=== PATIENT | female | born 1940 | race Caucasian/White ===

== ENCOUNTER 2024-11-30 16:00 | Inpatient (IN) | payer MEDICARE, OTHER, SELFPAY ==
[2024-11-30] VITALS (10 sets, daily range): BP systolic 121–152; BP diastolic 48–82; BMI 26.8
--- NOTE | 2024-11-30 12:07 | ED.GENMED ---
History of Present Illness
General
Chief Complaint: Breathing Problem
Time Seen by Provider: 11/30/24 11:58
Nursing documentation reviewed up to this point in time: agreed with
History of Present Illness
History of Present Illness:
84-year-old female brought to the ER by her daughter for evaluation of severe shortness of breath which started last night. Patient was unable to sleep due to feeling of difficulty breathing when she tried to lay flat. Daughter has also noted her
to have more labored breathing with exertion over the past few days. Patient has been also complaining of feeling generally weak since yesterday. She has been experiencing some swelling to her bilateral lower extremities. No prior personal
history of venous thromboembolism, daughter does report that she has had vein stripping in her legs before. Patient reports chest pain with exertion. She occasionally has coughing, not necessarily new with today's symptoms. No reported fevers.
Patient has been eating and drinking although less in the last 24 hours. Patient denies any urinary symptoms-daughter reports that she has experienced urinary tract infections in the past without any symptoms.
Review of Systems
Review of Systems
Allergies reviewed?: Yes
Phy Exam
Physical Exam
Physical Exam:
Patient is awake, alert, appears in no acute distress, head is NCAT, PERRL, EOMI mucous membranes dry, conjunctiva pink, heart regular rate and rhythm without murmurs or ectopy, lungs are clear to auscultation without wheezes rales or rhonchi, no
JVD, abdomen is soft and nontender on palpation, trace edema right lower extremity, 2+ edema left lower extremity, no erythema to the bilateral lower extremities, 2+ DP pulses present symmetric, GCS is 15
Scores
Heart Failure Risk
Heart Failure Risk Score: Yes
History of Stroke or TIA: No
History of intubation for respiratory distress: No
Heart rate on ED arrival >/= 110: No
SaO2 <90% on arrival on room air: No
HR >/=110 during 3min walk test (or too ill to perform test): Yes
ECG has acute ischemic changes: No
Urea >/=12mmol/L (BUN 33.6mg/dL): No
Serum CO2>/=35mmol/L: No
Troponin I or T elevated to IA Level (0.4mg/dL): No
NT-proBNP >/=5,000ng/L (5,000pg/ml): No
HF Risk Score: 2
Admission Status: MEDIUM RISK 9.2% Consider observation or discharge to home with homecare & f/u visit to PCP/Surgical Appliance Fitter, or SNF for treatment
Course
Orders/Labs/Results
Orders:
Orders
11/30/24 11:12
Electrocardiogram (*1) Urgent
Reason for Study: Shortness of Breath
EKG- Treatment ONCE
11/30/24 12:05
IV Insert/Care/Rem.- Treatment PRN
Pulse Ox/cont/shift [RESP] Stat
Quantity: 1
US Legs, Left [US Periph Venous LOWER Ext LT] Urgent
Comment:
Reason For Exam: edema
11/30/24 12:06
Cardiac Monitoring- Treatment ONCE
CR Chest - 2 Views Urgent
Comment:
Reason For Exam: dyspnea
11/30/24 13:03
COVID-19 Antigen Urgent
Source: Nasal Swab
Complete Blood Count/With Diff Urgent
Comprehensive Metabolic Panel Urgent
Magnesium Urgent
NT-proBNP Urgent
PTT Urgent
Prothrombin Time Urgent
Troponin I Q3H
Influenza A+B Rapid Molecular Urgent
ALVIN Source: Nasal Swab
Specimen Description:
11/30/24 13:57
Furosemide [Lasix] 40 mg IV NOW STA
11/30/24 14:42
Admit/Transfer Patient As Directed
Co-Sign Provider:
Level of Care: Inpatient admission
Assign to:: Telemetry
Physician / Group: Hospitalists
Diagnosis: Acute heart failure, unknown type
Reason for Telemetry: Chest Pain syndromes
Date to Stop Telemetry: 12/02/24
Time to Stop Telemetry: 11:00
Reason for Hospitalization: Acute congestive heart failure
Expected length of stay greater than two midnights?: Yes
ELOS- Estimated Length of Stay in days: 3
I certify the patient meets the requirements for IP care: Yes
11/30/24 14:43
PRN Pain Medication Management As Directed
May give lesser potent ordered pain med per pt: Yes
preference::
Protocol:: Medication orders for pain may be administered in a
manner that supports deferring to patient preference
when the pt is:
- Requesting an ordered lesser potent pain medication.
Least to most potent pain medications are defined
as: acetaminophen < NSAID < tramadol < opioids
(morphine, oxycodone, hydromorphone).
- Requesting a lesser dose of the same medication IF
ORDERED.
- Requesting a less intrusive route of administration
if both routes are prescribed by the provider (PO <
IV).
11/30/24 14:48
Code Status As Directed
Resuscitation Status: Full Code
11/30/24 15:15
Troponin I Q3H
12/02/24 11:00
DC Protocol for Telemetry ONCE
Abnormal Lab Results
11/30/24
13:03
RBC 3.59 L 10^6/uL
(4.20-5.40)
Hgb 10.6 L g/dL
(12.0-16.0)
Hct 32.9 L %
(37.0-47.0)
MCHC 32.2 L g/dL
(33.0-37.0)
MPV 11.2 H fL
(7.4-10.4)
Absolute Neuts (auto) 6.9 H 10^3/uL
(1.4-6.5)
Absolute Monos (auto) 0.8 H 10^3/uL
(0.1-0.6)
PT 14.9 H Sec
(11.4-14.6)
Chloride 111 H mmol/L
(98-107)
BUN 24 H mg/dl
(7-17)
Glucose 148 H mg/dl
(70-99)
Total Protein 6.2 L g/dl
(6.3-8.2)
11/30/24 13:03
11/30/24 13:03
Mild anemia seen, no indication for transfusion. Mild elevation in BUN with preserved creatinine. BNP is elevated, no prior labs for comparison
Vital Signs
Initial and Last Documented VS:
Initial Vital Signs
Temp Pulse Resp BP Pulse Ox
98.1 F 81 18 151/75 97
11/30/24 11:19 11/30/24 11:19 11/30/24 11:19 11/30/24 11:19 11/30/24 11:19
Last Documented Vital Signs
Temp Pulse Resp BP Pulse Ox
98.1 F 75 22 151/75 97
11/30/24 11:19 11/30/24 11:47 11/30/24 11:47 11/30/24 11:19 11/30/24 12:10
MDM/Problems Addressed
Differential Diagnosis Includes:
Differential diagnosis to consider but not limited to ACS, CHF, pneumonia, COVID, flu, electrolyte dyscrasia, acute renal failure along with other etiologies considered
*Radiology
Radiology exam reviewed: preliminary read by ED provider (I independently viewed and interpreted two-view chest x-ray showing cardiomegaly, patchy infiltrates, infectious versus atypical heart failure) and radiology read reviewed (Ultrasound of the
left lower extremity shows:IMPRESSION: No evidence of deep venous thrombosis of the left lower extremity. Incidental note is made of a Temple's cyst)
*Pulse Oximetry
SaO2: 97
Oxygen Mode of Delivery: Room air
Patient hypoxic: no
*EKG
Interpreted by ED Provider?: Yes (I independently viewed and interpreted twelve-lead EKG showing sinus rhythm with marked sinus arrhythmia, rate 79, normal axis, nonspecific T wave changes without ST elevation, this is an abnormal tracing, no prior
for comparison)
*Typing Element Machine Operator Interpretation
Rate: normal (I independently viewed and interpreted rhythm strip showing sinus rhythm with sinus arrhythmia)
*Critical Care Note
Total Time (30-74mins, 75-104mins- exclusive of procedures): Not Applicable
Update Note
Update Note:
Patient resting comfortably throughout time in the emergency department. Wants x-ray images obtained along with lab results, I discussed with patient and daughter present at bedside my clinical concern for congestive heart failure as etiology of
symptoms. IV Lasix is ordered. They agree with plan for admission for further assessment and had no questions at that time. I reviewed patient presentation with the hospitalist who accepts patient for admission.
ED Attending Note
-
Portions of this chart may have been created with voice recognition software.� Occasional wrong word or��sound alike� substitutions may have occurred due to the inherent limitations of voice recognition software.
Discharge Plan
Departure
Patient Disposition: Admit
Date of Disposition: 11/30/24
Time of Disposition: 14:04
Presentation/result/management discussed w/ accepting MD/DO: Hospitalist
Discharge Problem:
Dyspnea, Congestive heart failure (CHF)
Prescriptions:
No Action
nifedipine [Nifedical XL] 30 mg Tablet Extended Release 24hr
30 mg PO QPM
atorvastatin [Lipitor] 80 mg Tablet
80 mg PO HS
carvedilol [Coreg] 25 mg Tablet
25 mg PO BID
insulin glargine [Lantus U-100 Insulin] 100 unit/mL Solution
6 unit SC DAILY
aspirin 81 mg Tablet,Delayed Release (Dr/Ec)
81 mg PO DAILY
nifedipine [Nifedical XL] 60 mg Tablet Extended Release 24hr
60 mg PO DAILY
metformin 500 mg Tablet Extended Release 24 Hr
500 mg PO BID
insulin lispro 100 unit/mL Insulin Pen
2 - 4 sliding scale dose SC AC
ezetimibe [Zetia] 10 mg Tablet
10 mg PO DAILY
cyclosporine [Restasis] 0.05 % Dropperette
1 drp BOTH EYES Q12H
ranolazine [Ranexa] 500 mg Tablet Extended Release 12 Hr
500 mg PO BID
cholecalciferol (vitamin D3) [Vitamin D3] 50 mcg (2,000 unit) Capsule
50 mcg PO DAILY
febuxostat 40 mg Tablet
40 mg PO DAILY
melatonin 10 mg Tablet
20 mg PO HS
Trelegy Ellipta 100-62.5-25 mcg Blister With Device
1 inh INHALATION R DAILYPRN PRN (Reason: sob)
Lokelma 10 gram Powder In Packet
10 g PO DAILY
Referrals:
Deniz Aguiar MD [Family Provider, Internal Medicine]
Interventions
Interventions:
*Risk Screen - Suicide Last Done: 11/30/24 11:19
*Neglect/Abuse Screening Last Done: 11/30/24 11:19
Discharge Date and Time
Print Language: SAMI
[2024-11-30 13:17] LABS: Hematocrit 32.9 % (37.0-47.0); Hemoglobin 10.6 g/dL (12.0-16.0); Mean Corp Hgb Conc. 32.2 g/dL (33.0-37.0); Mean Corpuscular Volume 91.6 fL (81.0-99.0); Nucleated Red Blood Cells % 0 %; Platelet Count 171 10^3/uL (130-400); Red Cell Dist. Width 13.9 % (11.5-14.5)
[2024-11-30 13:27] LABS: APTT 25.5 Sec (23.4-35.0); INR 1.12; PT 14.9 Sec (11.4-14.6)
[2024-11-30 13:40] LABS: ALT (SGPT) 17 U/L (0-35); AST (SGOT) 18 U/L (14-36); Albumin 3.6 g/dl (3.5-5.0); Alkaline Phosphatase 60 U/L (38-126); Blood Urea Nitrogen 24 mg/dl (7-17); Calcium 9.0 mg/dl (8.4-10.2); Carbon Dioxide 26 mmol/L (22-30); Chloride 111 mmol/L (98-107); Glucose 148 mg/dl (70-99); Magnesium 2.0 mg/dl (1.6-2.3); Potassium 4.3 mmol/L (3.5-5.1); Sodium 141 mmol/L (135-145); Total Protein 6.2 g/dl (6.3-8.2); eGFR 54.87
[2024-11-30 13:43] LABS: Troponin I < 0.012 ng/ml
[2024-11-30 13:49] LABS: COVID-19 Antigen Negative (Negative)
--- NOTE | 2024-11-30 14:06 | W.PN.UPDATE ---
Update Note
Progress Note Update
I could not get any information from the patient as�
Information gathered by chart review and speaking with the ER staff.
This note serves as an addendum to the H&P by PGY3
HPI
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
- BiB daughter for evaluation of severe shortness of breath which started last night.
- unable to sleep due to feeling of difficulty breathing when she tried to lay flat.
- Daughter has also noted her to have more labored breathing with exertion over the past few days
- feeling generally weak since yesterday.
- some swelling to her bilateral lower extremities.
- No PMHX DVT but daughter does report that she has had vein stripping in her legs before.
- reports chest pain with exertion.
- Patient has been eating and drinking although less in the last 24 hours.
ROS
No reported fevers. Patient denies any urinary symptoms-daughter reports that she has experienced urinary tract infections in the past without any symptoms.
Relevant VS
Temp Pulse Resp BP Pulse Ox
98.1 F 75 22 151/75 97
11/30/24 11:19 11/30/24 11:47 11/30/24 11:47 11/30/24 11:19 11/30/24 12:10
PE
Gen: NAD
HEENT: anicteric
Neck: no JVD
Lungs: symmetric AE , basilar rales
Cor: RRR S1 s2
Abdomen:�soft
FIRST LINE SUPERVISOR: AA
MS:no edema
Relevant Data
11/30/24
13:03
WBC 10.0
Hgb 10.6 L
MCV 91.6
INR 1.12
Sodium 141
Potassium 4.3
BUN 24 H
Creatinine 1.0
eGFR 54.87
Glucose 148 H
Total Bilirubin 0.8
AST 18
ALT 17
Troponin I < 0.012
Nzb-G-Blnsdfoibxt Pept 1400
EKG:
SINUS RHYTHM WITH MARKED SINUS ARRHYTHMIA
NONSPECIFIC T WAVE ABNORMALITY
ABNORMAL ECG
NO PREVIOUS ECGS AVAILABLE
CXR:
Findings suggest congestive heart failure.
There is patchy airspace disease bilaterally which may be chronic, but acute pneumonia cannot be excluded.
LLEx US:
No evidence of deep venous thrombosis of the left lower extremity.
Incidental note is made of a Temple's cyst
NO prior hospitalist admission:
ASSESSMENT & PLAN
Pending Rx reconciliation
Acute HF highly suspect acute HFrEF due to CM - ICM vs NICM due to HTN
Progressive dyspnea with orthopnea
CXR suggestive of CHF, and pulmonary edema , large CM
HX est ASCVD ( CAD, CABG)
- Mildly hypertensive
- mild renal insufficiency suspect CRS acute HF
- NEG TPNI, Mildly elevated proBNP
- IV Lasix 40 daily
- Daily Wt, BMP and IOs
- ECHO in AM
- Defer further ischemic evaluation ( Op > IP ) per ECHO and Card
- Likely GDMT candidate - defer to Card evaluation
- DCA card consult
Renal insufficiency suspect current DARLENE due to CRS
At risk efor CKD with ASCVD, IDDM
- Trend Cr in response to IV Diresis
Hypertensive
Essential HTN
- IV Lasix and FU BP
HLD
- on Statin
IDDM
- Hold Metformin
- add ISS low
LLEx edema - HX vein stripping
- NEG US for DVT
HX PAD
DVT Px: LMWH
Full Code:
IP TLM
--- NOTE | 2024-11-30 14:08 | HPS.HSE ---
Family Physician
-
Family Physician: Deniz Aguiar
Chief Complaint
-
Shortness of breath on exertion.
History of Present Illness
Kerline is an 84-year-old bed-[id number]-[id number] female who is brought to the ER by her daughter for evaluation of shortness of breath on exertion. Her past medical history significant for CAD s/p CABG, CVA, angina (on ranolazine and nitroglycerin),
syncope (unknown if seizure, needed CPR), essential hypertension, hyperlipidemia, breast carcinoma s/p radiation, peripheral vascular disease-venous, osteoporosis, uncontrolled hypertension, insulin-dependent type 2 diabetes mellitus Kerline's daughter
states that patient started developing dyspnea on exertion along with swelling of the legs about a week ago. Dyspnea on exertion progressively worsened over the last 1 week, it worsened to a point that she she could not lie down flat with some
associated PND overnight. She also reports that her mom could not walk around the house which is her typical baseline. Patient has some generalized fatigue and associated swelling of the legs. She also reports to have some associated cough
without any sputum production or pinkish froth.
Patient denies having chest pain, palpitations, fevers, chills, sedentary life (although her movement over the last 1 week has significantly decreased), dysuria, frequency, hesitancy, abdominal pain, constipation, diarrhea, nausea, emesis. She also
denies having sick contacts.
Off note her radiation was about 5 years ago and Which was 15 years ago. 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 Her most recent echo shows EF of 60% and 2020. No prior history of congestive heart failure or abnormal heart rhythms.
Patient declined doctor of podiatric medicine, and prefers her daughter to translate all the decisions.
Medical History
Past Medical History
Past Medical History: Reports Other (CAD s/p CABG, CVA, angina (on ranolazine and nitroglycerin), syncope (unknown if seizure, needed CPR), essential hypertension, hyperlipidemia, breast carcinoma s/p radiation, peripheral vascular disease-venous,
osteoporosis, uncontrolled hypertension, insulin-dependent type 2 diabetes mellitus)
Past Surgical History: Reports Other (CABG, vein stripping, left breast surgery for carcinoma s/p radiation)
Social History
Tobacco: Non-smoker
Alcohol: None
Drug: None
Personal: Single
Living: Alone
Employment: Retired
Family History
Family History: Not pertinent
Allergies / Home Medications
Allergies reflects when Allergies were last updated in [facility].
Home Medications with original date entered in [facility]
Allergy/Medication List:
Allergies
Allergy/AdvReac Type Severity Reaction Status Date / Time
No Known Allergies Allergy Verified 11/30/24 11:26
Home Medications
aspirin 81 mg tablet,delayed release 81 mg PO DAILY 11/30/24
atorvastatin 80 mg tablet (Lipitor) 80 mg PO HS 11/30/24
carvedilol 25 mg tablet (Coreg) 25 mg PO BID 11/30/24
cholecalciferol (vitamin D3) 50 mcg (2,000 unit) capsule (Vitamin D3) 50 mcg PO DAILY 11/30/24
cyclosporine 0.05 % eye drops in a dropperette (Restasis) 1 drp BOTH EYES Q12H 11/30/24
ezetimibe 10 mg tablet (Zetia) 10 mg PO DAILY 11/30/24
febuxostat 40 mg tablet 40 mg PO DAILY 11/30/24
fluticasone fur. 100 mcg-umeclid 62.5 mcg-vilant 25 mcg inhalat.powder (Trelegy Ellipta) 1 inh inhalation R DAILYPRN PRN sob 11/30/24
insulin glargine 100 unit/mL subcutaneous solution (Lantus U-100 Insulin) 6 unit SC DAILY 11/30/24
insulin lispro 100 unit/mL subcutaneous pen 2 - 4 sliding scale dose SC AC 11/30/24
melatonin 10 mg tablet 20 mg PO HS 11/30/24
metformin 500 mg tablet,extended release 24 hr 500 mg PO BID 11/30/24
nifedipine 30 mg tablet,extended release 24 hr 30 mg PO QPM 11/30/24
nifedipine 60 mg tablet,extended release 24 hr 60 mg PO DAILY 11/30/24
ranolazine 500 mg tablet,extended release,12 hr 500 mg PO BID 11/30/24
sodium zirconium cyclosilicate 10 gram oral powder packet (Lokelma) 10 g PO DAILY 11/30/24
Review of Systems
-
History Source: Patient and Family (Translates patient's symptoms and physicians conversation with the patient)
A 12 point ROS was completed and negative except as noted: Yes
Constitutional: Reports Fatigue
EENT: Reports No Symptoms
Respiratory: Reports Cough and Trouble Breathing
Cardiac: Reports Syncope (In the past)
Abdomen/GI: Reports No Symptoms
Musculoskeletal: Reports Edema (In both legs)
Skin: Reports No Symptoms
Neurological: Reports No Symptoms
Endocrine: Reports No Symptoms
Psych: Reports No Symptoms
Physical Exam
Vital Signs
Vital Signs
Temp Pulse Resp BP Pulse Ox
98.1 F 75 22 151/75 97
11/30/24 11:19 11/30/24 11:47 11/30/24 11:47 11/30/24 11:19 11/30/24 12:10
Physical Exam
General: Appears in Distress (Mild)
HEENT: Moist mucous membranes; No Pharyngeal Erythema
Respiratory: Wheezes (Expiratory wheezes across all lung lobes,), Crackles (In right lower lobe,) and Decreased Breath Sounds (In left lower lobe)
Cardiac: S1/S2 and Regular Rhythm; No Murmur, Rub, Gallop, JVD, Carotid Bruits or HJR
GI: Soft, Non Tender, Non Distended and Normal Bowel Sounds
Genito-urinary: Deferred by me
Musculoskeletal: No Clubbing, No Cyanosis, Edema, Left Lower Extremity (1+, up to mid low) and Edema, Right Lower Extremity (1+, limited to ankle, less than left.)
Skin: Warm
Neuro: AO x 3, No Motor Deficits and Nonfocal/grossly intact
Psych: Calm
Laboratory Results
-
11/30/24 13:03
11/30/24 13:03
Laboratory Results
PT 14.9 Sec (11.4-14.6) H 11/30/24 13:03
INR 1.12 11/30/24 13:03
APTT 25.5 Sec (23.4-35.0) 11/30/24 13:03
Total Bilirubin 0.8 mg/dl (0.2-1.3) 11/30/24 13:
AST 18 U/L (14-36) 11/30/24 13:
ALT 17 U/L (0-35) 11/30/24 13:03
Alkaline Phosphatase 60 U/L (38-126) 11/30/24 13:03
Troponin I < 0.012 ng/ml 11/30/24 13:03
Data Reviewed
-
Medical Tests (Nuc Med, Echo, EKG etc): Image Personally Visualized and interpreted, Report Reviewed by me, Discussed with Physician and Discussed with Patient
Lab Data: Labs Reviewed by me, Discussed with Physician, Discussed with Patient and Discussed with Family
Impression/Plan
-
IMPRESSION: 84-year-old vtz-[id number]-[id number] female with PMHx significant for CAD s/p CABG, CVA, angina (on ranolazine and nitroglycerin), syncope (unknown if seizure, needed CPR), essential hypertension, hyperlipidemia, breast carcinoma s/p
radiation, peripheral vascular disease-venous, osteoporosis, uncontrolled hypertension, insulin-dependent type 2 diabetes mellitus presents to the ER for evaluation of dyspnea on exertion. Diagnosed with acute congestive heart failure, unknown type.
PLAN:
# Acute congestive heart failure-unknown type
No history of heart failure in the past.
CAD s/p CABG about 15 years ago, history of radiation to left breast about 5 to 7 years ago.
Most recent echocardiogram in 2020 with mild MR, EF of 65%, trace TR, grade 1 left ventricular diastolic dysfunction.
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
Physical exam, chest [id number] with diagnosis of acute congestive heart failure
Admit to telemetry.
S/p 1 dose of 40 mg Lasix in the ER, Start IV Lasix 40 mg once a day.
Obtain echocardiogram, sodium and fluid restriction diet
Monitor I's and O's, monitor daily weights.
proBNP - 1400, troponins not elevated.
Cardiology consulted, on board. GDMT-on Toprol-XL, needs DOYLE/ARB, mineralocorticoid and SGLT2, defer to cardiology.
# DARLENE -
Unknown baseline, eGFR-58
Unclear if patient has history of CKD from diabetes.
Likely from volume overload.
Monitor renal function with IV Lasix for improvement.
# IDDM-
Lantus 6 units, sliding scale, metformin as home regimen.
Hold metformin, continue Lantus 6 units, sliding scale-lower assist
Accu-Cheks, hemoglobin A1c in the a.m. tomorrow.
# CAD-
Continue aspirin and Toprol-XL.
# Chronic angina-
Currently stable
Continue nitroglycerin and ranolazine at home.
# Uncontrolled hypertension-
Continue nifedipine
# Hyperlipidemia-
Continue home dose statin and ezetimibe
# Possible history of gout-
Hold febuxostat with new diagnosis of heart failure.
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
Breast carcinoma s/p surgery and radiation in remission
Osteoporosis
Peripheral vascular disease-venous
# History of CVA
DVT prophylaxis-
# CODE STATUS-
Full code
[2024-11-30] MEDS: LASIX 40 MG IV (15:41)
--- NOTE | 2024-11-30 15:52 | CON.CAR ---
Addendum entered and electronically signed by Brock Bay MD 11/30/24 18:05:
I saw and examined the patient.
The Water Quality Technician's note was reviewed and I agree with the note.
Comment:
GEN: No distress, awake, Ox3
HEENT: supple, anicteric, mmm
LUNGS: faint wheeze
CV: Reg, S1/S2, 1/6 syst LSB, S4+
ABD: soft, BS+, NT/ND
EXT: trace edema
NEURO: Gross non-focal
SKIN: No rash
Plan:
84-year-old female followed at [facility] with past ministry of CABG x 2, COPD, diabetes and prior breast cancer presents to [facility] with orthopnea, mild edema, and shortness of breath. She is Danish-speaking and
daughter provides the history. She has no chest pains. She has had some wheezing cough and fatigue. Her blood pressure had been low recently.
She presents with acute on chronic heart failure with preserved ejection fraction. Last echo was reviewed which revealed EF of 55% with no significant valve disease.
Cardiac cath from 2019 revealed patent KEYES to LAD, and occluded saphenous vein graft to RCA and OM.
Start Lasix 40 mg IV twice daily. Check repeat echocardiogram. CHF education.
Continue carvedilol, nifedipine, and Ranexa.
Will continue medical therapy for coronary artery disease. Continue aspirin, atorvastatin, carvedilol, and Ranexa.
We will check cost for Farxiga/Jardiance.
Discussed with daughter at bedside
Original Note:
Consultation
Consultation Request
Date/Time Consultation Performed: 11/30/24
Requesting Provider: Dr. Logan
Performing Provider: Lena Wheatley PA-C for Dr. Bay
Reason for Consultation: CHF
Medical History
-
Chief Complaint: SOB
History of Present Illness:
Patient is an 84-year-old female with past medical history of CAD status post CABG x 2 at outside hospital, COPD with former smoking, type 2 diabetes, history of breast cancer status postsurgery and radiation initially with then oral chemotherapy 5
to 6 years later now in remission who presents to [facility] for evaluation of shortness of breath. She and family live in [place], however patient's daughter states that they heard good things about this hospital so came here for evaluation.
Patient is followed by Dr. Ashlie Torrez of [facility]. She is essentially Danish only speaking. Daughter is at bedside and translates for patient. Reports initially noted some lower extremity edema 3 or 4 days ago, then since then has developed
worsening shortness of breath, orthopnea and cough. She is not on a water pill as an outpatient and denies history of heart failure or cardiomyopathy. On arrival chest x-ray shows evidence of CHF and proBNP 1400 resulting in cardiology
consultation.
PMH:
CAD
status post CABG surgery x 5 2006 at outside hospital
Patent arterial grafts to LAD, distal RCA, OM 2 and occlusions of SVG to RCA and SVG to OM1 by cath 03/2018
COPD with remote former smoking
Type 2 diabetes
HTN
HLD
History of CVA
History of syncope versus seizure
History of breast cancer status post surgery and radiation, then followed by chemotherapy 5 to 6 years later
PVD s/p vein stripping
Past Medical History
Past Medical History: Other (in HPI)
Social History
Tobacco: Former Smoker (remote)
Living: Alone
Family History
Family History: Reviewed & Not Pertinent
Allergies / Home Medications
Allergy/AdvReac Type Severity Reaction Status Date / Time
No Known Allergies Allergy Verified 11/30/24 11:26
�Medication �Instructions �Recorded �Confirmed �Type
aspirin 81 mg tablet,delayed 81 mg PO DAILY 11/30/24 11/30/24 History
release
atorvastatin 80 mg tablet (Lipitor) 80 mg PO HS 11/30/24 11/30/24 History
carvedilol 25 mg tablet (Coreg) 25 mg PO BID 11/30/24 11/30/24 History
cholecalciferol (vitamin D3) 50 50 mcg PO DAILY 11/30/24 11/30/24 History
mcg (2,000 unit) capsule (Vitamin
D3)
cyclosporine 0.05 % eye drops in a 1 drp BOTH EYES Q12H 11/30/24 11/30/24 History
dropperette (Restasis)
ezetimibe 10 mg tablet (Zetia) 10 mg PO DAILY 11/30/24 11/30/24 History
febuxostat 40 mg tablet 40 mg PO DAILY 11/30/24 11/30/24 History
fluticasone fur. 100 mcg-umeclid 1 inh inhalation R DAILYPRN PRN sob 11/30/24 11/30/24 History
62.5 mcg-vilant 25 mcg
inhalat.powder (Trelegy Ellipta)
insulin glargine 100 unit/mL 6 unit SC DAILY 11/30/24 11/30/24 History
subcutaneous solution (Lantus
U-100 Insulin)
insulin lispro 100 unit/mL 2 - 4 sliding scale dose SC AC 11/30/24 11/30/24 History
subcutaneous pen
melatonin 10 mg tablet 20 mg PO HS 11/30/24 11/30/24 History
metformin 500 mg tablet,extended 500 mg PO BID 11/30/24 11/30/24 History
release 24 hr
nifedipine 30 mg tablet,extended 30 mg PO QPM 11/30/24 11/30/24 History
release 24 hr
nifedipine 60 mg tablet,extended 60 mg PO DAILY 11/30/24 11/30/24 History
release 24 hr
ranolazine 500 mg tablet,extended 500 mg PO BID 11/30/24 11/30/24 History
release,12 hr
sodium zirconium cyclosilicate 10 10 g PO DAILY 11/30/24 11/30/24 History
gram oral powder packet (Lokelma)
Review of Systems
-
Unable to obtain full review of systems at this time due to: Language Barrier
History Source: Family
All other systems: Negative unless noted
Physical Exam
Vital Signs
Temp Pulse Resp BP Pulse Ox
98.1 F 74 22 121/82 97
11/30/24 11:19 11/30/24 15:41 11/30/24 11:47 11/30/24 15:41 11/30/24 12:10
Lab Results
11/30/24 13:03
11/30/24 13:03
Troponin I < 0.012 ng/ml 11/30/24 13:03
Umv-B-Veufpquajlr Pept 1400 pg/ml 11/30/24 13:03
Physical Exam
General: No Apparent Distress and Comfortable
HEENT: Normocephalic, Anicteric and Moist Mucous Membranes
Respiratory: Crackles (few at bases) and Non Labored Respirations
Cardiac: S1/S2 and Regular Rhythm
GI: Soft, Non Tender, Non Distended and Normal Bowel Sounds
Musculoskeletal: No Clubbing, No Cyanosis and Edema (trace to 1+ edema)
Skin: Warm and Dry
Neuro: AO x 3
Impression / Plan
-
Primary Drug Coordinator: Dr. Ashlie Torrez of [facility]
Assessment:
Presentation with SOB
Acute HFpEF
CAD
status post CABG surgery x 5 2006 at outside hospital
Patent arterial grafts to LAD, distal RCA, OM 2 and occlusions of SVG to RCA and SVG to OM1 by cath 03/2018
COPD with remote former smoking
Type 2 diabetes
HTN
HLD
History of CVA
History of syncope versus seizure
History of breast cancer status post surgery and radiation, then followed by chemotherapy 5 to 6 years later
PVD s/p vein stripping
Anemia
Nuclear stress test 08/18/2019: Normal with no change compared to prior study from 2016 with myocardial perfusion normal and EF 68%
Echo 08/18/2019: EF 65%, mildly dilated LA, mild MR, trace TR, PAP normal, grade 1 diastolic dysfunction
Plan:
- Patient presents with shortness of breath, orthopnea, lower extremity edema, and cough which daughter notes has developed over the last 3 to 4 days. She denies history of heart failure inpatient and she is not on outpatient diuretic therapy
- proBNP 1400 and chest x-ray shows findings consistent with acute CHF
- EF historically preserved by echocardiogram as above from 2019, report reviewed by me
- last stress test 08/2019 with results as above, report reviewed by me. Troponin in ER negative and patient without reports of chest pain
- EKG sinus rhythm with sinus arrhythmia and what appears to be lateral T wave inversion with no prior to compare
- Will diurese patient. Creatinine stable at 1
- Repeat echo
- Continue outpatient Coreg, nifedipine, Ranexa
- Continue aspirin. Hemoglobin 10.6
- Discussed with hospitalist resident. Discussed with daughter at bedside
Data Reviewed
-
EKG: Tracing Personally Visualized and interpreted
Radiology: Report Reviewed by me
Medical Tests (Nuc Med, Echo etc): Report Reviewed by me
Labs: Labs Reviewed by me
Old Records: Reviewed
--- NOTE | 2024-11-30 16:16 | CM ---
Patient seen at bedside in ED with patient daughter. Patient has aide services 16 hours daily per patient daughter with [facility]. Patient has a walker and lives in an apartment with elevators and one floor, no steps. Patient has had VN
in the past daughter does not remember the name of the company. Patient has never been placed in SNF. Patient does not understand algerian but daughter translated for her. Patient PCP is Dr. Aguiar and she uses the [facility] [id number] CM will continue to follow for discharge planning needs.
Plan; return home with aide; watch for SNF vs VN needs pending medical treatment plan.
[2024-11-30 16:24] LABS: Troponin I < 0.012 ng/ml
[2024-11-30] MEDS: NOVOLOG FLEXPEN-LOW RESISTANCE SC (20:43)
[2024-11-30] MEDS: COREG 25 MG PO (20:43)
[2024-11-30 20:44] LABS: Glucose - Point of Care 141 mg/dl (70-99)
[2024-11-30] MEDS: LOVENOX 40 MG SC (20:46)
[2024-11-30] MEDS: RANEXA EXTENDED RELEASE 500 MG PO (20:46)
[2024-11-30] MEDS: RESTASIS 0.05% OPHTHALMIC EMULSION 1 DROPS BOTH EYES (20:47)
[2024-11-30] MEDS: PROCARDIA XL (EXTENDED RELEASE) 30 MG PO (20:53)
[2024-11-30 21:49] LABS: Glucose - Point of Care 141 mg/dl (70-99)
[2024-11-30] MEDS: LIPITOR 80 MG PO (22:20)
[2024-11-30] MEDS: MELATONIN 20 MG PO (22:56)
[2024-12-01] VITALS (8 sets, daily range): BP systolic 113–141; BP diastolic 51–70; PULSE 67; O2SAT 96; BMI 27.2; BMI 26.6
[2024-12-01] MEDS: SYMBICORT 80/4.5 MCG INHALER 2 PUFF INH ×2 (07:58→19:59)
[2024-12-01] MEDS: SPIRIVA RESPIMAT 2.5 MCG 2 PUFF INH (07:58)
[2024-12-01 08:12] LABS: Hematocrit 32.8 % (37.0-47.0); Hemoglobin 10.3 g/dL (12.0-16.0); Mean Corp Hgb Conc. 31.4 g/dL (33.0-37.0); Mean Corpuscular Volume 92.4 fL (81.0-99.0); Platelet Count 169 10^3/uL (130-400); Red Cell Dist. Width 13.8 % (11.5-14.5)
[2024-12-01 08:38] LABS: ALT (SGPT) 15 U/L (0-35); AST (SGOT) 17 U/L (14-36); Albumin 3.3 g/dl (3.5-5.0); Alkaline Phosphatase 51 U/L (38-126); Blood Urea Nitrogen 23 mg/dl (7-17); Calcium 8.8 mg/dl (8.4-10.2); Carbon Dioxide 30 mmol/L (22-30); Chloride 108 mmol/L (98-107); Estimated Creatinine Clearance 33 ml/min; Glucose 106 mg/dl (70-99); Magnesium 2.0 mg/dl (1.6-2.3); Potassium 4.5 mmol/L (3.5-5.1); Sodium 143 mmol/L (135-145); Total Protein 5.8 g/dl (6.3-8.2); eGFR 48.94
[2024-12-01] MEDS: ASPIR LOW (ENTERIC COATED) 81 MG PO (08:55)
[2024-12-01] MEDS: COREG 25 MG PO ×2 (08:55→20:51)
[2024-12-01] MEDS: RESTASIS 0.05% OPHTHALMIC EMULSION 1 DROPS BOTH EYES ×2 (08:55→20:52)
[2024-12-01] MEDS: RANEXA EXTENDED RELEASE 500 MG PO ×2 (08:55→20:52)
[2024-12-01] MEDS: PROCARDIA XL (EXTENDED RELEASE) 60 MG PO (08:55)
[2024-12-01] MEDS: NOVOLOG FLEXPEN-LOW RESISTANCE SC ×2 (08:56→17:06)
[2024-12-01] MEDS: LASIX 40 MG IV (08:56)
[2024-12-01] MEDS: LANTUS 0.06 UNITS SC (08:56)
[2024-12-01 08:57] LABS: Glucose - Point of Care 114 mg/dl (70-99)
[2024-12-01] MEDS: ZETIA 10 MG PO (08:57)
--- NOTE | 2024-12-01 09:50 | W.PN.HOSP.TC ---
Addendum entered and electronically signed by Abdelrahman Adler MD 12/01/24 09:51:
#Mild anemia
outpatient f/u with PCP
Original Note:
Today's Communication/Plan
-
see PN
Assessment / Plan
Assessment / Plan
84 yo Italian speaking F with PMHX of DM, HFpEF, HTN, HLD, LEONELA s/p CABG x2, COPD, CKD stage 3a came with few weks of progressive SOB and LE swelling, Managed for CHF exacerbation
A/P:
#Acute respiratory insufficiency 2/2 Acute on chronic HFpEF exacerbation
XR with congestion
Pro-BNP elevated to 1400
Lasix, daily weight, follow electrolytes, Cr
Cardio consult
Echo
wean off O2
Low salt diet
#DM type 2 with nephropathy CKD stage 3a
folow BMP
Insulin basal and sliding scale, DM diet, Accuchecks
HgbA1c
#CAD s/p CABG, stable
#HLD
#Essential HTN
#COPD not in exacerbation
#Gout
#HDL
#Glaucoma
cont home meds
DVT ppx hep
Full code
I have spent at least 51min reviewing chart, test results, communication with consultants, son bedside and providing direct patient care
Anticipated Discharge: 24 - 48 hours
Subjective/Interval History
-
Date of Service: December 01, 2024
Objective Data
-
Labs:
Laboratory Results
12/01/24 12/01/24
07:34 07:35
WBC 8.3
Hgb 10.3 L
Hct 32.8 L
Plt Count 169
Sodium 143
Potassium 4.5
Chloride 108 H
Carbon Dioxide 30
BUN 23 H
Creatinine 1.1 H
Glucose 106 H
Calcium 8.8
Total Bilirubin 0.8
AST 17
ALT 15
Alkaline Phosphatase 51
Vital Signs:
Vital Signs
Temp Pulse Resp BP Pulse Ox
97.9 F 75 16 126/70 99
12/01/24 07:43 12/01/24 08:00 12/01/24 08:00 12/01/24 07:43 12/01/24 08:00
I&O
11/30/24 12/01/24 12/02/24
06:59 06:59 06:59
Intake Total 480 / 480
Balance 480 / 480
Review of Systems
-
History Source: Patient
All other systems: Reviewed and negative
Physical Exam
-
General: No Apparent Distress
HEENT: Normocephalic
Respiratory: Crackles
Cardiac: Regular Rhythm
GI: Soft, Nontender and Nondistended
Musculoskeletal: No Clubbing, No Cyanosis and No Edema
Neuro: Awake, Alert, Oriented and AO x 3
Psych: Calm
[2024-12-01 10:11] LABS: Glycohemoglobin (HgbA1c) 5.4 % (4.0-5.6)
--- NOTE | 2024-12-01 10:12 | W.PN.CARDCBS ---
Addendum entered and electronically signed by Jarod Kauffman MD 12/01/24 15:18:
Patient walking in hallways with daughter, no acute distress
PMH: CABG 2005, known loss of vein graft to RCA and OM1 by cardiac catheterization 2018, COPD, diabetes, hypertension, hyperlipidemia, history of stroke, breast cancer, possible seizure disorder, anemia
Current medications: Atorvastatin 80 mg at bedtime, carvedilol 25 twice daily, ezetimibe 10 mg a day, nifedipine 60 a.m. 30 p.m., ranolazine 500 twice daily, aspirin 81 mg a day, furosemide 40 mg IV daily, Symbicort, Lantus insulin, Spiriva
113/55, pulse 60s, afebrile, weight is 65.9 kg, was 71.1 kg on admit and 67.3 kg yesterday, no distress, lungs clear, regular rate and rhythm soft systolic murmur JVD okay not much edema
Hemoglobin 10.3, platelets 169, BUN and creatinine are 23 and 1.1, potassium is 4.5
Impression:
Acute HFpEF
CAD
status post CABG surgery x 5 2006 at outside hospital
Patent arterial grafts to LAD, distal RCA, OM 2 and occlusions of SVG to RCA and SVG to OM1 by cath 03/2018
COPD with remote former smoking
Type 2 diabetes
HTN
HLD
History of CVA
History of syncope versus seizure
History of breast cancer status post surgery and radiation, then followed by chemotherapy 5 to 6 years later
PVD s/p vein stripping
Anemia
Plan:
Overall improved in regards to heart failure, presumably with presumed EF. Volume status is close to normal probable transition to oral furosemide in a.m. She was not on a diuretic at the time of admission.
Await echocardiogram, can defer issues of spironolactone/SGLT2 antagonist to her primary resource conservationist Dr. Torrez at the [facility].
Original Note:
Today's Communication / Plan
-
-cont diuresis
-echo pending
Impression / Plan
-
Primary Production Officer: Dr. Ashlie Torrez of [facility]
Assessment:
Presentation with SOB
Acute HFpEF
CAD
status post CABG surgery x 5 2005 at outside hospital
Patent arterial grafts to LAD, distal RCA, OM 2 and occlusions of SVG to RCA and SVG to OM1 by cath 03/2018
COPD with remote former smoking
Type 2 diabetes
HTN
HLD
History of CVA
History of syncope versus seizure
History of breast cancer status post surgery and radiation, then followed by chemotherapy 5 to 6 years later
PVD s/p vein stripping
Anemia
Nuclear stress test 08/18/2019: Normal with no change compared to prior study from 2016 with myocardial perfusion normal and EF 68%
Echo 08/18/2019: EF 65%, mildly dilated LA, mild MR, trace TR, PAP normal, grade 1 diastolic dysfunction
Echo 12/01/2024 pending
Plan:
- Patient presents with shortness of breath, orthopnea, lower extremity edema, and cough which developed over3-4 day TOWEL FOLDER. She denies history of heart failure inpatient and she is not on outpatient diuretic therapy
- proBNP 1400 and chest x-ray shows findings consistent with acute CHF
- EF historically preserved by echocardiogram as above from 2019, report reviewed by me
-repeat echo today 12/01
- last stress test 08/2019 with results as above, report reviewed by me. Troponin in ER negative and patient without reports of chest pain
- EKG sinus rhythm with sinus arrhythmia and what appears to be lateral T wave inversion with no prior to compare
- Diuresing w/ Lasix 40 mg IV daily. Creatinine 1.1 today 12/01, up from 1.0. Son reports she has 'problem with kidneys' in past
-wt down 1 lb overnight
-less SOB today. remains on 2L O2. Has O2 at home but uses infrequently per son
- Continue outpatient Coreg, nifedipine, Ranexa
- Continue aspirin. Hemoglobin 10.3
-exp wheezing on exam, son reports this is chronic
-telem personally reviewed: NSR 60s-70s
- Discussed with nursing. Discussed with son at bedside
Progress Note - Production Officer
Subjective
Date of Service: December 01, 2024
-feels better today, less SOB
wt down 1 lb
no CP
Objective
Labs:
12/01/24 07:35
12/01/24 07:34
Labs
Hgb 10.3 g/dL (12.0-16.0) L 12/01/24 07:35
Hct 32.8 % (37.0-47.0) L 12/01/24 07:35
Plt Count 169 10^3/uL (130-400) 12/01/24 07:35
PT 14.9 Sec (11.4-14.6) H 11/30/24 13:03
INR 1.12 11/30/24 13:03
APTT 25.5 Sec (23.4-35.0) 11/30/24 13:03
Sodium 143 mmol/L (135-145) 12/01/24 07:34
Potassium 4.5 mmol/L (3.5-5.1) 12/01/24 07:34
BUN 23 mg/dl (7-17) H 12/01/24 07:34
Creatinine 1.1 mg/dL (0.6-1.0) H 12/01/24 07:34
Glucose 106 mg/dl (70-99) H 12/01/24 07:34
Troponins
11/30/24 11/30/24
13:03 15:43
Troponin I < 0.012 < 0.012
Vital Signs and I&O:
Vital Signs
Temp Pulse Resp BP Pulse Ox
97.9 F 75 16 126/70 99
12/01/24 07:43 12/01/24 08:00 12/01/24 08:00 12/01/24 07:43 12/01/24 08:00
Vital Signs
Temp Pulse Resp BP Pulse Ox
97.9 F 75 16 126/70 99
12/01/24 07:43 12/01/24 08:00 12/01/24 08:00 12/01/24 07:43 12/01/24 08:00
Intake & Output
11/29/24 11/30/24 12/01/24 12/02/24
06:59 06:59 06:59 06:59
Intake Total 480 / 480
Balance 480 / 480
Physical Exam
Physical Exam
GEN: No distress, awake, Ox3
HEENT: supple, anicteric, mmm
LUNGS: + exp wheezing, rales at bases
CV: Reg, S1/S2,no murmur
ABD: soft, BS+, NT/ND
EXT: No edema
NEURO: Gross non-focal
SKIN: No rash
--- NOTE | 2024-12-01 10:24 | CM ---
Addendum entered by Elle Lacy 12/01/24 15:49:
regional transportation manager spoke with patient's son and Oxygen company to go to patient's home today to fix concentrator.
Original Note:
regional transportation manager reviewed patient's chart and met with patient and son at bedside and spoke with daughter Marie by phone. Patient has home oxygen at 4 liters continuous oxygen and a concentrator that goes up to 5 liters, per Davina at [employer] [address] [facility]. Per daughter concentrator is leaking and when catalytic case operator reached out to oxygen [employer] they stated that they have already been in touch with daughterMarie to set up a service time with family, equipment
company needs someone to let them into the house. [facility] is [facility] with [facility] [id number] [place] [address].
Referral sent to home care agency and catalytic case operator spoke with Davina at home oxygen company and [employer] will deliver a portable tank to patient's room at [facility] tomorrow.
[facility]
[phone]
[2024-12-01 12:16] LABS: Glucose - Point of Care 222 mg/dl (70-99)
[2024-12-01] MEDS: NOVOLOG FLEXPEN-LOW RESISTANCE 2 UNITS SC (12:50)
[2024-12-01 16:33] LABS: Glucose - Point of Care 138 mg/dl (70-99)
[2024-12-01] MEDS: HEPARIN 5000 UNITS SC ×2 (17:05→23:03)
[2024-12-01] MEDS: PROCARDIA XL (EXTENDED RELEASE) 30 MG PO (17:06)
[2024-12-01] MEDS: LIPITOR 80 MG PO (21:10)
[2024-12-01 21:43] LABS: Glucose - Point of Care 182 mg/dl (70-99)
[2024-12-01] MEDS: MELATONIN 20 MG PO (23:03)
[2024-12-02 04:14] VITALS: BP 118/46
[2024-12-02 05:31] VITALS: BMI 26.5
[2024-12-02 07:00] VITALS: BP 128/63
[2024-12-02] MEDS: SPIRIVA RESPIMAT 2.5 MCG 2 PUFF INH (08:00)
[2024-12-02] MEDS: SYMBICORT 80/4.5 MCG INHALER 2 PUFF INH (08:00)
[2024-12-02 08:42] LABS: Glucose - Point of Care 137 mg/dl (70-99)
[2024-12-02 08:52] LABS: Hematocrit 31.0 % (37.0-47.0); Hemoglobin 9.9 g/dL (12.0-16.0); Mean Corp Hgb Conc. 31.9 g/dL (33.0-37.0); Mean Corpuscular Volume 90.9 fL (81.0-99.0); Platelet Count 170 10^3/uL (130-400); Red Cell Dist. Width 13.6 % (11.5-14.5)
[2024-12-02] MEDS: ASPIR LOW (ENTERIC COATED) 81 MG PO (08:56)
[2024-12-02] MEDS: NOVOLOG FLEXPEN-LOW RESISTANCE SC (08:56)
[2024-12-02] MEDS: RESTASIS 0.05% OPHTHALMIC EMULSION 1 DROPS BOTH EYES (08:56)
[2024-12-02] MEDS: PROCARDIA XL (EXTENDED RELEASE) 60 MG PO (08:56)
[2024-12-02] MEDS: COREG 25 MG PO (08:56)
[2024-12-02] MEDS: RANEXA EXTENDED RELEASE 500 MG PO (08:56)
[2024-12-02] MEDS: LANTUS 0.06 UNITS SC (08:57)
[2024-12-02] MEDS: ZETIA 10 MG PO (08:57)
[2024-12-02] MEDS: LASIX 40 MG IV (08:57)
[2024-12-02] MEDS: HEPARIN 5000 UNITS SC (08:57)
[2024-12-02 09:42] LABS: ALT (SGPT) 14 U/L (0-35); AST (SGOT) 17 U/L (14-36); Albumin 3.2 g/dl (3.5-5.0); Alkaline Phosphatase 54 U/L (38-126); Blood Urea Nitrogen 29 mg/dl (7-17); Calcium 8.5 mg/dl (8.4-10.2); Carbon Dioxide 27 mmol/L (22-30); Chloride 107 mmol/L (98-107); Estimated Creatinine Clearance 30 ml/min; Glucose 106 mg/dl (70-99); Magnesium 1.9 mg/dl (1.6-2.3); Potassium 4.3 mmol/L (3.5-5.1); Sodium 140 mmol/L (135-145); Total Protein 5.6 g/dl (6.3-8.2); eGFR 44.08
[2024-12-02 11:00] VITALS: BP 112/47
--- NOTE | 2024-12-02 11:23 | CM ---
Addendum entered by Dana Kerr 12/02/24 14:12:
Tank of O2 delivered today. Patient for discharge pending confirmation from [facility] confirmed that aides will meet patient at home with granddaughter to transport. CM will confirm IMM and signed form to be placed on chart.
Original Note:
Patient seen at bedside on . Patient resting and on O2. CM will continue to follow for discharge planning needs.
Plan; home with aides, family supports.
[2024-12-02 11:37] LABS: Glucose - Point of Care 230 mg/dl (70-99)
--- NOTE | 2024-12-02 12:01 | W.PN.HOSP.TC ---
Addendum entered and electronically signed by Abdelrahman Adler MD 12/02/24 13:56:
Dont use billing under this note, use D/C billing instead
Original Note:
Today's Communication/Plan
-
cont mgmt as per card
Assessment / Plan
Assessment / Plan
84 yo [place] Guinean speaking F with PMHX of DM, HFpEF, HTN, HLD, LEONELA s/p CABG x2, COPD, CKD stage 3a came with few weks of progressive SOB and LE swelling, Managed for CHF exacerbation
A/P:
#Acute respiratory insufficiency 2/2 Acute on chronic HFpEF exacerbation
XR with congestion
Pro-BNP elevated to 1400
Lasix, daily weight, follow electrolytes, Cr
Cardio consult
Echo
wean off O2
Low salt diet
#DM type 2 with nephropathy CKD stage 3a
folow BMP
Insulin basal and sliding scale, DM diet, Accuchecks
HgbA1c
#CAD s/p CABG, stable
#HLD
#Essential HTN
#COPD not in exacerbation
#Gout
#HDL
#Glaucoma
cont home meds
DVT ppx hep
Full code
I have spent at least 36min reviewing chart, test results, communication with consultants, son bedside and providing direct patient care
Anticipated Discharge: Within 24 hours
Subjective/Interval History
-
Date of Service: December 02, 2024
Objective Data
-
Labs:
Laboratory Results
12/02/24
07:13
WBC 7.3
Hgb 9.9 L
Hct 31.0 L
Plt Count 170
Sodium 140
Potassium 4.3
Chloride 107
Carbon Dioxide 27
BUN 29 H
Creatinine 1.2 H
Glucose 106 H
Calcium 8.5
Total Bilirubin 0.6
AST 17
ALT 14
Alkaline Phosphatase 54
Vital Signs:
Vital Signs
Temp Pulse Resp BP Pulse Ox
97.5 F 69 16 128/63 96
12/02/24 07:00 12/02/24 08:03 12/02/24 08:03 12/02/24 07:00 12/02/24 08:03
I&O
12/01/24 12/02/24 12/03/24
06:59 06:59 06:59
Intake Total 480 / 480 1200 / 1200
Output Total 600 / 600
Balance 480 / 480 600 / 600
Review of Systems
-
History Source: Patient
All other systems: Reviewed and negative
Physical Exam
-
General: No Apparent Distress
HEENT: Normocephalic
Respiratory: Clear to Auscultation
GI: Soft, Nontender and Nondistended
Musculoskeletal: No Clubbing, No Cyanosis and No Edema
Neuro: Awake, Alert, Oriented and AO x 3
Psych: Calm
[2024-12-02] MEDS: NOVOLOG FLEXPEN-LOW RESISTANCE 2 UNITS SC (12:03)
--- NOTE | 2024-12-02 12:56 | W.DCSUMMARY ---
Discharge Summary
Discharge Data
Date of Admission: 11/30/24
Date of Discharge: 12/02/24
-
Pending Results: No
Hospital Course
84 yo Niuean speaking F with PMHX of DM, HFpEF, HTN, HLD, LEONELA s/p CABG x2, COPD with chronic hypoxic respiratory failure on 4l home O2, CKD stage 3a came with few weks of progressive SOB and LE swelling, Managed for CHF exacerbation. Improved on
diuresis. Echo: Mild left ventricular hypertrophy with preserved systolic function, EF 60-65%. Stage II diastolic dysfunction with elevated left atrial pressure. Moderate MR. Cardiology started oral Lasix. Patient to follow up with her established
natural resources engineer upon d/c. With normal potassium and new Lasix - Lokelma stopped to void hypokalemia. Mild Cr elevation due to diuresis. BMP in 1 week - family aware. Medcially stble for d/c. As per message: is on home oxygen at 4 liters continuous
in home per [employer]
I have spent at least 36min reviewing chart, test results, communication with consultants, son bedside and providing direct patient care
Patient was managed for:
#Acute respiratory insufficiency 2/2 Acute on chronic HFpEF exacerbation
#DM type 2 with nephropathy CKD stage 3a
#CAD s/p CABG, stable
#HLD
#Essential HTN
#COPD not in exacerbation
#Gout
#HDL
#Glaucoma
Discharge Plan
-
Patient Disposition: Home (Routine Discharge)
Discharge Diagnosis/Procedures: CHF
Diet: Low Sodium
Activity: No restrictions
Blood Work: check blood work - [facility], one week after discharge
Referrals:
Deniz Aguiar MD [Family Provider, Internal Medicine]
Prescriptions:
New
furosemide 40 mg Tablet
40 mg PO DAILY Qty: 30 0RF
Continued
nifedipine 30 mg Tablet Extended Release 24hr
30 mg PO QPM
atorvastatin [Lipitor] 80 mg Tablet
80 mg PO HS
carvedilol [Coreg] 25 mg Tablet
25 mg PO BID
insulin glargine [Lantus U-100 Insulin] 100 unit/mL Solution
6 unit SC DAILY
aspirin 81 mg Tablet,Delayed Release (Dr/Ec)
81 mg PO DAILY
nifedipine 60 mg Tablet Extended Release 24hr
60 mg PO DAILY
metformin 500 mg Tablet Extended Release 24 Hr
500 mg PO BID
insulin lispro 100 unit/mL Insulin Pen
2 - 4 sliding scale dose SC AC
ezetimibe [Zetia] 10 mg Tablet
10 mg PO DAILY
cyclosporine [Restasis] 0.05 % Dropperette
1 drp BOTH EYES Q12H
ranolazine 500 mg Tablet Extended Release 12 Hr
500 mg PO BID
cholecalciferol (vitamin D3) [Vitamin D3] 50 mcg (2,000 unit) Capsule
50 mcg PO DAILY
febuxostat 40 mg Tablet
40 mg PO DAILY
melatonin 10 mg Tablet
20 mg PO HS
Trelegy Ellipta 100-62.5-25 mcg Blister With Device
1 inh INHALATION R DAILYPRN PRN (Reason: sob)
Discontinued
Lokelma 10 gram Powder In Packet
10 g PO DAILY
Discharge Date and Time
Print Language: AMHARIC
--- NOTE | 2024-12-05 15:00 | W.HF.CON ---
Heart Failure
- LV Function
Left ventricular function study result: LV Ejection fraction >/= 50%
Ejection Fraction Percentage: 60-65
- ARNI
Patient already on ARNI: No
Heart Failure ARNI Not Indicated: LV Ejection Fraction >/= 40%
- ACEI/ARB
Patient already on ACEI/ARB: No
Heart Failure ACEI/ARB Not Indicated: LV Ejection Fraction > 40%
- Beta Pratik
Patient already on Evidence Based Beta Pratik: Yes
- Mineralocorticord Receptor Antagonist
Patient already on MRA: No
Heart Failure MRA Not Indicated: LV Ejection Fraction > 40%
- SGLT-2 Inhibitor
Patient already on SGLT-2 Inhibitor: No
Heart Failure SGLT-2 Inhibitor Not Indicated: LV Ejection Fraction >40%
- NYHA CHF Classification
NYHA CHF Classification Level: Class III - Symptoms w/ min exertion, interferes w/ nml daily activity
- ACC/AHA Stage
ACC/AHA Stage: Stage C: Symptomatic Heart Failure
== END 2024-12-02 14:31 | disposition home or self-care (01) | DRG 291 ==
LOC: 4 WEST ACU 16:00
PROVIDERS: Student in an Organized Health Care Education/Training Program; ADMITTING PHYSICIAN Internal Medicine; ATTENDING PHYSICIAN Internal Medicine; CONSULT PHYSICIAN Internal Medicine Cardiovascular Disease; EMERGENCY PHYSICIAN Emergency Medicine; FAMILY PHYSICIAN Internal Medicine
DX: I13.0 Hypertensive heart and chronic kidney disease with heart failure and stage 1 through stage 4 chronic kidney disease, or unspecified chronic kidney disease (principal); I50.33 Acute on chronic diastolic (congestive) heart failure; I25.810 Atherosclerosis of coronary artery bypass graft(s) without angina pectoris; J96.11 Chronic respiratory failure with hypoxia; N17.9 Acute kidney failure, unspecified; N18.31 Chronic kidney disease, stage 3a; E11.22 Type 2 diabetes mellitus with diabetic chronic kidney disease; E11.51 Type 2 diabetes mellitus with diabetic peripheral angiopathy without gangrene; I25.119 Atherosclerotic heart disease of native coronary artery with unspecified angina pectoris; E78.5 Hyperlipidemia, unspecified; J44.9 Chronic obstructive pulmonary disease, unspecified; Z79.4 Long term (current) use of insulin; Z79.84 Long term (current) use of oral hypoglycemic drugs; Z86.73 Personal history of transient ischemic attack (TIA), and cerebral infarction without residual deficits; Z92.3 Personal history of irradiation; M81.0 Age-related osteoporosis without current pathological fracture; Z85.3 Personal history of malignant neoplasm of breast; Z99.81 Dependence on supplemental oxygen; D64.9 Anemia, unspecified; E87.6 Hypokalemia; T50.2X5A Adverse effect of carbonic-anhydrase inhibitors, benzothiadiazides and other diuretics, initial encounter; Z79.82 Long term (current) use of aspirin; Z79.899 Other long term (current) drug therapy; Z87.891 Personal history of nicotine dependence; Z11.52 Encounter for screening for COVID-19
CPT/HCPCS: 71046; 80053; 82962; 83036; 83735; 83880; 84100; 84443; 84484; 85025; 85027; 85610; 85730; 87502; 87811; 93005; 93306; 93971; 94640; 97162; 97166; 99285

== ENCOUNTER 2024-12-26 14:28 | Inpatient (IN) | payer MEDICARE, MEDICAID, SELFPAY ==
[2024-12-26 10:26] VITALS: BP 137/68
[2024-12-26 11:07] VITALS: BMI 27.7
[2024-12-26 11:16] VITALS: BP 127/67
[2024-12-26 11:25] LABS: Hematocrit 34.4 % (37.0-47.0); Hemoglobin 10.7 g/dL (12.0-16.0); Mean Corp Hgb Conc. 31.1 g/dL (33.0-37.0); Mean Corpuscular Volume 93.2 fL (81.0-99.0); Nucleated Red Blood Cells % 0 %; Platelet Count 202 10^3/uL (130-400); Red Cell Dist. Width 13.4 % (11.5-14.5)
[2024-12-26 11:38] LABS: COVID-19 Antigen Negative (Negative)
[2024-12-26 11:39] LABS: ALT (SGPT) 18 U/L (0-35); AST (SGOT) 19 U/L (14-36); Albumin 4.0 g/dl (3.5-5.0); Alkaline Phosphatase 81 U/L (38-126); Blood Urea Nitrogen 31 mg/dl (7-17); Calcium 9.1 mg/dl (8.4-10.2); Carbon Dioxide 25 mmol/L (22-30); Chloride 107 mmol/L (98-107); Estimated Creatinine Clearance 26 ml/min; Glucose 221 mg/dl (70-99); Potassium 5.0 mmol/L (3.5-5.1); Sodium 139 mmol/L (135-145); Total Protein 6.8 g/dl (6.3-8.2); eGFR 36.64
--- NOTE | 2024-12-26 11:41 | ED.GENMED ---
History of Present Illness
General
Chief Complaint: Breathing Problem
Source: patient and family
Exam Limitations: none
Time Seen by Provider: 12/26/24 10:59
Nursing documentation reviewed up to this point in time: agreed with
History of Present Illness
History of Present Illness:
Note:
CHIEF COMPLAINT(S)
Shortness of breath for several days.
HISTORY OF PRESENT ILLNESS
The patient is an 84-year-old female who presented to the emergency department with complaints of shortness of breath that began several days ago. 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
pulmonary problems, cardiac causes such as heart failure, or related to a renal condition. The patient uses supplemental oxygen at home on an as-needed basis. The caregiver mentioned that a buildup of fluid in the patients lungs is a possibility.
There is an active investigation including a chest x-ray and blood tests to ascertain the underlying cause of her respiratory distress. A breathing treatment is also planned to assess its effectiveness in alleviating her symptoms.
ADDITIONAL HISTORY OBTAINED FROM SOURCES OTHER THAN THE PATIENT
The patients caregiver indicated uncertainty about the cause of the shortness of breath, indicating input from the patients crusher loader operator. Additionally, it was noted that the patient had previous interaction with Dr. Torrez, a crusher loader operator, suggesting
potential cardiac involvement. However, the caregiver mentioned that the crusher loader operator is unsure whether the source of the problem is the heart or another underlying issue such as kidney problems.
SOCIAL DETERMINANTS AFFECTING HEALTH
The caregiver mentioned that there have been challenges in medication approval, indicating possible financial or healthcare access barriers.
PHYSICAL EXAM
General: Alert, no acute distress.
Skin: Warm, dry.
Head: Normocephalic, atraumatic.
Neck: Supple, trachea midline.
Eyes, Ears, Nose, Mouth, and Throat: Oral mucosa moist.
Cardiovascular: Normal peripheral perfusion, No edema.
Respiratory: wheezing and rales noted, decreased air movement
Gastrointestinal: Abdomen nondistended.
Back: Normal range of motion, Normal alignment.
Musculoskeletal: Normal range of motion, normal strength.
Neurological: Alert and oriented to person, place, time, and situation, No focal neurological deficit observed.
Psychiatric: Cooperative, appropriate mood & affect.
PROBLEM LIST
Acute:
- Shortness of breath
- Possible fluid retention in lungs
- Undetermined pulmonary or cardiac issue
PLAN
1. Administer a breathing treatment to determine the effectiveness in alleviating symptoms.
2. Perform a chest x-ray to evaluate any abnormalities in the lungs.
3. Conduct blood tests to assist in diagnosing the potential cause of symptoms.
DIFFERENTIAL DIAGNOSIS
The Differential Diagnosis includes, in no particular order and is not limited to:
1. Congestive heart failure
2. Chronic obstructive pulmonary disease (COPD)
3. Pulmonary edema
4. Pneumonia
5. Renal failure with fluid overload
6. Interstitial lung disease
7. Anemia
8. Pulmonary embolism
9. Chronic kidney disease exacerbation
10. Asthma exacerbation
EKG
My independent EKG interpretation is:
- Time of EKG: Not specified
- Rhythm: Normal
- Heart Rate: 71 bpm
- T-wave Abnormality: Not specific
No Heading
[object Object]
Disposition:
SUMMARY OF ENCOUNTER
The patient, an 84-year-old female, was seen in the emergency department due to shortness of breath, likely exacerbated by congestive heart failure (CHF). She was given intravenous furosemide (generic name for Lasix) to manage fluid retention.
Oxygen therapy is being continued. Concurrently, the possibility of interstitial lung disease as a contributing factor is being considered.
DISPOSITION
Admit to a hospitalist.
ASSESSMENT
The patient is experiencing a CHF exacerbation, contributing to her severe respiratory distress. The potential involvement of interstitial lung disease is also being evaluated.
EMERGENCY TREATMENTS ADMINISTERED
Intravenous furosemide was administered to address fluid overload associated with CHF exacerbation.
MANAGEMENT OF THE PATIENTS CARE WAS DISCUSSED WITH
Admission to a hospitalist was arranged for continued inpatient care and further evaluation.
PLAN
1. Admit the patient under the care of the hospitalist for further management and evaluation.
2. Continue oxygen therapy to maintain adequate oxygen saturation.
3. Monitor fluid status and kidney function due to diuretic therapy.
MEDICAL DECISION MAKING
-Complexity of Data Reviewed: Chronic conditions affecting care CHF, exacerbation of interstitial lung disease. Differential diagnosis includes congestive heart failure, chronic obstructive pulmonary disease (COPD), pulmonary edema, pneumonia, renal
failure with fluid overload, interstitial lung disease, anemia, pulmonary embolism, chronic kidney disease exacerbation, asthma exacerbation.
-Data:
Category 1: The patients condition was assessed based on symptoms and response to diuretics.
Category 3: Discussion of management involved consultation with a hospitalist for admission and further inpatient care.
DIAGNOSIS
1. Congestive Heart Failure Exacerbation - ICD-10: I50.9
2. Possible Interstitial Lung Disease - ICD-10: J84.10
3. COPD exacerbation
Phy Exam
Physical Exam
Physical Exam:
.
Scores
Heart Failure Risk
Heart Failure Risk Score: Yes
History of Stroke or TIA: No
History of intubation for respiratory distress: No
Heart rate on ED arrival >/= 110: No
SaO2 <90% on arrival on room air: Yes
HR >/=110 during 3min walk test (or too ill to perform test): No
ECG has acute ischemic changes: No
Urea >/=12mmol/L (BUN 33.6mg/dL): No
Serum CO2>/=35mmol/L: No
Troponin I or T elevated to AK Level (0.4mg/dL): No
NT-proBNP >/=5,000ng/L (5,000pg/ml): No
HF Risk Score: 1
Admission Status: MEDIUM RISK 5.1% Consider observation or discharge to home with homecare & f/u visit to PCP/Instrument And Control Technician, or SNF for treatment
Course
Orders/Labs/Results
Orders:
Orders
12/26/24 10:26
Electrocardiogram (*1) Urgent
Reason for Study: Shortness of Breath
EKG- Treatment ONCE
12/26/24 11:14
CMP [Comprehensive Metabolic Panel] Urgent
COVID-19 Antigen Urgent
Source: Nasal Swab
Complete Blood Count/With Diff Urgent
Pro-BNP [NT-proBNP] Urgent
Troponin I Urgent
Comment: ADD
Influenza A+B Rapid Molecular Urgent
ALVIN Source: Nasal Swab
Specimen Description:
12/26/24 11:23
Add On- LAB Urgent
Tests Added?: troponin
12/26/24 11:45
CXR2 [CR Chest - 2 Views ] Urgent
Comment:
Reason For Exam: SOB
12/26/24 11:46
Ipratropium/Albuterol Sulfate [Duoneb] 3 ml INH R NOW STA
12/26/24 13:38
Furosemide [Lasix] 40 mg IV ONCE ONE
Ipratropium/Albuterol Sulfate [Duoneb] 3 ml INH R NOW STA
Abnormal Lab Results
12/26/24
11:14
WBC 13.3 H 10^3/uL
(4.8-10.8)
RBC 3.69 L 10^6/uL
(4.20-5.40)
Hgb 10.7 L g/dL
(12.0-16.0)
Hct 34.4 L %
(37.0-47.0)
MCHC 31.1 L g/dL
(33.0-37.0)
MPV 11.6 H fL
(7.4-10.4)
Abs Immat Gran (auto) 0.1 H 10^3/uL
(0-0.05)
Absolute Neuts (auto) 10.1 H 10^3/uL
(1.4-6.5)
Absolute Monos (auto) 0.8 H 10^3/uL
(0.1-0.6)
Neutrophils % 76.1 H %
(42.2-75.2)
Lymphocytes % 16.1 L %
(20.5-51.1)
BUN 31 H mg/dl
(7-17)
Creatinine 1.4 H mg/dL
(0.6-1.0)
Glucose 221 H mg/dl
(70-99)
12/26/24 11:14
12/26/24 11:14
Vital Signs
Initial and Last Documented VS:
Initial Vital Signs
Temp Pulse Resp BP Pulse Ox
98.2 F 73 20 137/68 95
12/26/24 10:26 12/26/24 10:26 12/26/24 10:26 12/26/24 10:26 12/26/24 10:26
Last Documented Vital Signs
Temp Pulse Resp BP Pulse Ox
98.2 F 65 18 135/53 97
12/26/24 10:26 12/26/24 13:15 12/26/24 13:15 12/26/24 13:00 12/26/24 13:15
*Pulse Oximetry
SaO2: 94
Nasal Cannula flow liters per minute: 2
Oxygen Mode of Delivery: Room air
Patient hypoxic: no
*Critical Care Note
Total Time (30-74mins, 75-104mins- exclusive of procedures): Not Applicable
ED Attending Note
-
Portions of this chart may have been created with voice recognition software.� Occasional wrong word or��sound alike� substitutions may have occurred due to the inherent limitations of voice recognition software.
Discharge Plan
Departure
Patient Disposition: Admit
Date of Disposition: 12/26/24
Time of Disposition: 13:41
Admit to: Telemetry
Presentation/result/management discussed w/ accepting MD/DO: Hospitalist
Patient with high blood pressure during this ER visit?: Yes
Condition: Fair
Discharge Problem:
Acute exacerbation of chronic obstructive pulmonary disease, Acute exacerbation of CHF (congestive heart failure)
Prescriptions:
No Action
nifedipine 30 mg Tablet Extended Release 24hr
30 mg PO QPM
atorvastatin [Lipitor] 80 mg Tablet
80 mg PO HS
carvedilol [Coreg] 25 mg Tablet
25 mg PO BID
insulin glargine [Lantus U-100 Insulin] 100 unit/mL Solution
6 unit SC DAILY
aspirin 81 mg Tablet,Delayed Release (Dr/Ec)
81 mg PO DAILY
nifedipine 60 mg Tablet Extended Release 24hr
60 mg PO DAILY
metformin 500 mg Tablet Extended Release 24 Hr
500 mg PO BID
insulin lispro 100 unit/mL Insulin Pen
2 - 4 sliding scale dose SC AC
ezetimibe [Zetia] 10 mg Tablet
10 mg PO DAILY
cyclosporine [Restasis] 0.05 % Dropperette
1 drp BOTH EYES Q12H
ranolazine 500 mg Tablet Extended Release 12 Hr
500 mg PO BID
cholecalciferol (vitamin D3) [Vitamin D3] 50 mcg (2,000 unit) Capsule
50 mcg PO DAILY
febuxostat 40 mg Tablet
40 mg PO DAILY
melatonin 10 mg Tablet
20 mg PO HS
Trelegy Ellipta 100-62.5-25 mcg Blister With Device
1 inh INHALATION R DAILYPRN PRN (Reason: sob)
furosemide 40 mg Tablet
40 mg PO DAILY Qty: 30 0RF
Referrals:
Deniz Aguiar MD [Family Provider, Internal Medicine]
Interventions
Interventions:
*Risk Screen - Suicide Last Done: 12/26/24 10:26
*General Assessment Last Done: 12/26/24 11:09
*Neglect/Abuse Screening Last Done: 12/26/24 10:26
*ED- Fall Risk Assessment Last Done: 12/26/24 11:09
*ED COVID-19 Vaccine History Last Done: 12/26/24 11:09
*ED Influenza Vaccine History Last Done: 12/26/24 11:09
ED- Cardiac Assessment Last Done: 12/26/24 11:09
ED- Pulmonary Assessment Last Done: 12/26/24 11:09
Discharge Date and Time
Print Language: VIETNAMESE
[2024-12-26 11:46] LABS: Troponin I < 0.012 ng/ml
[2024-12-26] MEDS: DUONEB 3 ML INH ×3 (11:51→19:39)
[2024-12-26 12:00] VITALS: BP 140/65
[2024-12-26 13:00] VITALS: BP 135/53
[2024-12-26] MEDS: LASIX 40 MG IV (13:56)
[2024-12-26] MEDS: SOLU-MEDROL PF 125 MG IV (13:56)
--- NOTE | 2024-12-26 14:00 | CON.PUL ---
Consultation
Consultation Request
Date/Time Consultation Requested: 12/26/2024
Date/Time Consultation Performed: 12/26/2024
Medical History
-
Chief Complaint: Shortness of breath
History of Present Illness:
Patient is a very pleasant 84-year-old female from [facility], accompanied by her daughter, who presented to the hospital with worsening shortness of breath. Patient reports a prior diagnosis of COPD for which oxygen was prescribed long time ago
which she only uses as needed. Patient reports that she used to follow with a partner manager and had yearly low-dose CT scans and was on Trelegy. She felt she did not notice any change in her symptoms with the inhalers and stopped using it years
ago. She smoked only for 2 to 4 years and quit more than 20 years ago. No history of asthma in childhood. She was recently discharged after an hospitalization for heart failure exacerbation. Patient over the last 2 to 3 days developed worsening
shortness of breath, orthopnea. No reported cough or expectoration. In the emergency room patient was noted to have chest x-ray with pulmonary edema, elevated proBNP. She reportedly also had wheezing and was given a bronchodilator along with
steroids and initiated on IV diuresis. Pulmonary consultation was requested for further input.
Past Medical History
Past Medical History: Reports Other (CAD s/p CABG, CVA, angina (on ranolazine and nitroglycerin), syncope (unknown if seizure, needed CPR), essential hypertension, hyperlipidemia, breast carcinoma s/p radiation, peripheral vascular disease-venous,
osteoporosis, uncontrolled hypertension, insulin-dependent type 2 diabetes mellitus)
Past Surgical History: Reports Other (CABG, vein stripping, left breast surgery for carcinoma s/p radiation)
Social History
Tobacco: Remote smoking history
Alcohol: None
Drug: None
Personal: Single
Living: Alone
Employment: Retired
Family History
Family History: Not pertinent
Allergies / Home Medications
Allergies
Allergy/AdvReac Type Severity Reaction Status Date / Time
No Known Allergies Allergy Verified 12/26/24 10:26
Home Medications
�Medication �Instructions �Recorded �Confirmed �Last Taken �Type
aspirin 81 mg tablet,delayed 81 mg PO DAILY Blood Clot 11/30/24 12/26/24 12/25/24 History
release Prevention/Tx
atorvastatin 80 mg tablet (Lipitor) 80 mg PO HS High Cholesterol 11/30/24 12/26/24 12/25/24 History
carvedilol 25 mg tablet (Coreg) 25 mg PO BID Blood Pressure 11/30/24 12/26/24 12/25/24 History
cholecalciferol (vitamin D3) 50 50 mcg PO DAILY Supplement 11/30/24 12/26/24 12/25/24 History
mcg (2,000 unit) capsule (Vitamin
D3)
cyclosporine 0.05 % eye drops in a 1 drp BOTH EYES Q12H Eye Condition 11/30/24 12/26/24 12/25/24 History
dropperette (Restasis)
ezetimibe 10 mg tablet (Zetia) 10 mg PO DAILY Allergies 11/30/24 12/26/24 12/25/24 History
febuxostat 40 mg tablet 40 mg PO DAILY Antigout Agent 11/30/24 12/26/24 12/25/24 History
fluticasone fur. 100 mcg-umeclid 1 inh inhalation R DAILYPRN PRN sob 11/30/24 12/26/24 12/25/24 History
62.5 mcg-vilant 25 mcg
inhalat.powder (Trelegy Ellipta)
insulin glargine 100 unit/mL 6 unit SC DAILY Diabetes 11/30/24 12/26/24 12/25/24 History
subcutaneous solution (Lantus
U-100 Insulin)
insulin lispro 100 unit/mL 2 - 4 sliding scale dose SC AC 11/30/24 12/26/24 12/25/24 History
subcutaneous pen Diabetes
melatonin 10 mg tablet 20 mg PO HS Sleep 11/30/24 12/26/24 12/25/24 History
nifedipine 30 mg tablet,extended 30 mg PO QPM Blood Pressure 11/30/24 12/26/2412/25/25 History
release 24 hr
nifedipine 60 mg tablet,extended 60 mg PO DAILY Blood Pressure 11/30/24 12/26/24 12/25/24 History
release 24 hr
ranolazine 500 mg tablet,extended 500 mg PO BID Antianginal Agent; 11/30/24 12/26/24 12/25/24 History
release,12 hr
furosemide 40 mg tablet 40 mg PO DAILY #30 tabs 12/02/24 12/26/24 12/25/24 Rx
dapagliflozin propanediol 5 mg 5 mg PO DAILY Diabetes 12/26/24 12/26/24 12/25/24 History
tablet (Farxiga)
linaclotide 145 mcg capsule 145 mcg PO DAILYPRN PRN 12/26/24 12/26/24 Unknown History
(Linzess) constipation
semaglutide 2 mg/dose (8 mg/3 mL) 2 mg SC TH Diabetes 12/26/24 12/26/24 12/22/24 History
subcutaneous pen injector (Ozempic)
Review of Systems
-
Hematologic/Lymphatic: Other (All 14 systems reviewed and negative except as stated above in the history of present illness.)
Vitals / Labs / Diagnostic Testing
Vital Signs
Temp Pulse Resp BP Pulse Ox
98.2 F 65 18 135/53 97
12/26/24 10:26 12/26/24 13:15 12/26/24 13:15 12/26/24 13:00 12/26/24 13:15
Lab Data
12/26/24 11:14
12/26/24 11:14
Microbiology
12/26/24 11:14 Nasal Swab Influenza Types A & B (MIGUELITO) - Final
Negative for Influenza A & B, NAAT
Negative results must be combined with clinical observations
and patient history.
Nucleic Acid Amplification test (NAAT)performed on the
[employer] platform.
Diagnostic Testing:
Physical Exam
-
HEENT: Normocephalic
Cardiovascular: S1/S2
Respiratory: Rales (Few inspiratory rales in the bases)
GI: Soft and Non Distended
Neurology: Awake and Alert
Skin: Warm
General: Comfortable
Assessment
-
#1. Dyspnea
- Suspect primarily related to volume overload. Also has underlying history of pulmonary hypertension and ?COPD
- Influenza A, B, COVID-19 screen negative. No consolidation suggestive of pneumonia, monitor off antibiotics
#2. Acute on chronic heart failure with preserved ejection fraction, stage II diastolic dysfunction
- BNP elevated at 1250
- Patient on IV diuresis, continue
#3. Pulmonary hypertension
- Echo suggestive of pulmonary artery systolic pressure of 52 with moderate tricuspid regurgitation. RV size and function preserved.
- Suspect group II PH with underlying congestive heart failure
- Continue to optimize volume with diuresis, keep oxygen saturation above 90%
- In view of volume overload, no indication for vasodilator therapy
#4. ?H/o COPD
- No prior h/o asthma. Reported smoking for 2-3 years only, quit > 20 years ago
- Patient reports h/o COPD and used to f/u with Rn Placement and used to be Trelegy which she stopped long time ago
- Current wheezing could be related to 'cardiac asthma' with fluid overload.
- Continue Duoneb qid. Hold off additional steroids for now and monitor response to diuresis
- Once she is euvolemic, will pursue bedside spirometry to evaluate further.
- Will need outpatient follow-up with [facility] pulmonary clinic for further evaluation including full pulmonary function testing and 6-minute walk test.
#5. Trace pleural effusions
- Appears small, in view of bilateral nature, suspect underlying volume overload contributing.
- Continue to diurese and monitor
Other medical diagnoses:
- CKD stage III
- History of coronary artery disease, s/p CABG in 2006. Patent graft per left heart cath in 2019
- Hypertension, hyperlipidemia
- Diabetes
- History of breast cancer s/p surgery and radiation followed by chemotherapy
- History of CVA
- Remote history of smoking.
Total time spent on this consultation/encounter _65__ minutes which includes review of history, physical exam, medications, laboratory data, personal review of imaging, extensive review of outpatient records, discussion with care team and
respiratory therapy.
Data:
CXR 11/2024: Cardiomegaly. Diffusely increased interstitial markings most suggestive of interstitial pulmonary edema pattern. See above discussion.
Small bilateral pleural effusions, including extension of fluid into the pleural fissures on the right.
ECHO 11/2024: 1. Mild left ventricular hypertrophy with preserved systolic function, EF 60-65%. Stage II diastolic dysfunction with elevated left atrial pressure.
2. Mitral leaflet thickening, mitral annular calcification, moderate mitral regurgitation and dilated left atrium.
3. Aortic sclerosis/borderline stenosis, mean gradient 10 mmHg, no aortic regurgitation.
4. Normal right heart with mild to moderate tricuspid regurgitation and moderate pulmonary hypertension, pulmonary artery systolic pressure of 52 mmHg.
5. There are no prior studies available for comparison.
--- NOTE | 2024-12-26 14:24 | HPS.HSE ---
Family Physician
-
Family Physician: Deniz Aguiar
Chief Complaint
-
SOB
History of Present Illness
84yo Togolese speaking F with PMHx of CVA, CAD s/p CABG, PVD, Hx of breast CA s/p RT and chemo, goutHFpEF on 4L home O2 PRN for 2 years, moderate MR, moderate TR and moderate pulmonary HTN, HLD, glaucoma, HTN, constipation, DM, COPD brought from home
with worsening dyspnea for past 3 days. She also developed pleuritic pain under L scapulae around 1 week ago, that later resolved. XR concerned for CHF, however proBNP 1250 (1400 previously). Patient was d/c after managed for CHF 3 weeks ago from
and was started on Lasix 40mg daily at that time, however BMP in 1 week showed Cr jump from 1.3 to 1.7, so Lasix decreased to q48h. Symptoms started to appear approximately after this change. Patient and family also noticed significant wheezing at
home.
Medical History
Past Medical History
Past Medical History: Reports Other
Additional Past Medical History:
see HPI
Past Surgical History: Reports Other
Additional Past Surgical History:
See HPI
Social History
Tobacco: Former Smoker
Alcohol: None
Drug: None
Family History
Family History: Not pertinent
Allergies / Home Medications
Allergies reflects when Allergies were last updated in [employer].
Home Medications with original date entered in [employer]
Allergy/Medication List:
Allergies
Allergy/AdvReac Type Severity Reaction Status Date / Time
No Known Allergies Allergy Verified 12/26/24 10:26
Home Medications
aspirin 81 mg tablet,delayed release 81 mg PO DAILY Blood Clot Prevention/Tx 11/30/24
atorvastatin 80 mg tablet (Lipitor) 80 mg PO HS High Cholesterol 11/30/24
carvedilol 25 mg tablet (Coreg) 25 mg PO BID Blood Pressure 11/30/24
cholecalciferol (vitamin D3) 50 mcg (2,000 unit) capsule (Vitamin D3) 50 mcg PO DAILY Supplement 11/30/24
cyclosporine 0.05 % eye drops in a dropperette (Restasis) 1 drp BOTH EYES Q12H Eye Condition 11/30/24
ezetimibe 10 mg tablet (Zetia) 10 mg PO DAILY Allergies 11/30/24
febuxostat 40 mg tablet 40 mg PO DAILY Antigout Agent 11/30/24
fluticasone fur. 100 mcg-umeclid 62.5 mcg-vilant 25 mcg inhalat.powder (Trelegy Ellipta) 1 inh inhalation R DAILYPRN PRN sob 11/30/24
insulin glargine 100 unit/mL subcutaneous solution (Lantus U-100 Insulin) 6 unit SC DAILY Diabetes 11/30/24
insulin lispro 100 unit/mL subcutaneous pen 2 - 4 sliding scale dose SC AC Diabetes 11/30/24
melatonin 10 mg tablet 20 mg PO HS Sleep 11/30/24
nifedipine 30 mg tablet,extended release 24 hr 30 mg PO QPM Blood Pressure 11/30/24
nifedipine 60 mg tablet,extended release 24 hr 60 mg PO DAILY Blood Pressure 11/30/24
ranolazine 500 mg tablet,extended release,12 hr 500 mg PO BID Antianginal Agent; 11/30/24
furosemide 40 mg tablet 40 mg PO DAILY #30 tabs 12/02/24
dapagliflozin propanediol 5 mg tablet (Farxiga) 5 mg PO DAILY Diabetes 12/26/24
linaclotide 145 mcg capsule (Linzess) 145 mcg PO DAILYPRN PRN constipation 12/26/24
semaglutide 2 mg/dose (8 mg/3 mL) subcutaneous pen injector (Ozempic) 2 mg SC TH Diabetes 12/26/24
Review of Systems
-
A 12 point ROS was completed and negative except as noted: Yes
Respiratory: Reports See HPI
Physical Exam
Vital Signs
Vital Signs
Temp Pulse Resp BP Pulse Ox
98.2 F 65 18 135/53 97
12/26/24 10:26 12/26/24 13:15 12/26/24 13:15 12/26/24 13:00 12/26/24 13:15
Physical Exam
General: No Apparent Distress, Comfortable and Conversant
HEENT: NormoCephalic, Anicteric and Moist mucous membranes
Respiratory: Clear; No Wheezes or Crackles
Cardiac: S1/S2 and Regular Rhythm; No Murmur
GI: Soft, Non Tender and Non Distended
Genito-urinary: No costovertebral tender
Musculoskeletal: No Clubbing, No Cyanosis and No Edema
Skin: Warm and Dry; No Lesions
Neuro: Awake, Alert, Oriented, AO x 3 and No Motor Deficits
Psych: Calm
Laboratory Results
-
12/26/24 11:14
12/26/24 11:14
Laboratory Results
Total Bilirubin 1.0 mg/dl (0.2-1.3) 12/26/24 11:14
AST 19 U/L (14-36) 12/26/24 11:14
ALT 18 U/L (0-35) 12/26/24 11:14
Alkaline Phosphatase 81 U/L (38-126) 12/26/24 11:14
Troponin I < 0.012 ng/ml 12/26/24 11:14
Data Reviewed
-
Diagnostic Radiology: Report Reviewed by me
Lab Data: Labs Reviewed by me
Impression/Plan
-
A/P:
#Acute on chronic hypoxic respiratory failure 2/2 acute on chronic HFpEF exacerbation and COPD exacerbation
#Moderate Pulmonary HTN
#CAD s/p PCI @2019 and CABG @2005
Mixed picture, no convincing clinical CHF bedside - will ask pulm to eval
Cardio consult
Echo done 3 weks ago -will defer
Telemetry
Lasix, daily weight, follow electrolytes and Cr
Taper steroids, bronchodilators
follow troponin trend, but chest pain-free at the time of admission
EKG without new overt TWI or ST changes
#LEukocytosis
no pneumonia on XR
COVID-19 and Influenza PCR neg
Afebrile
follow clinically off Abx
#DM type 2 with nephropathy
Accuchecks, Insulin SS and Lantus 6 units daily, DM diet
Hold farxiga and Ozempic
HgbA1c 5.4% on 12/01/24
#CKD stage 3
#Essential HTN
#HLD
#Gout
cont home meds
DVT ppx on Hep
Full code
I have spent at least 78min reviewing chart, test results, communication with consultnats and providing direct patient care
--- NOTE | 2024-12-26 15:20 | EDCM ---
CM reviewed chart and met with pt and daughter bedside in ED. Pt is [place]ian speaking. Per daughter, pt lives alone in one level apartment in [place], has elevator access. Ambulates without assistance but does have rolling walker.
Needs assistance with ADLs and personal care. Has CLEANING SUPERVISOR 16 hours a day [facility], daughter notified them of admission.
Pt has home O2 from [facility] in [place]. per daughter she wears between 2 and 4L NC as needed.
Hx VN in past but unsure of agency. No hx SNF.
PCP: Irene Aguiar
Pharmacy: [facility] in [place]
Anticipate discharge home with resumption of CLEANING SUPERVISOR, CM will continue to follow for all discharge planning needs.
--- NOTE | 2024-12-26 15:28 | CON.CAR ---
Addendum entered and electronically signed by Gabbi Gomes DO 12/26/24 20:43:
I saw and examined the patient.
The Steam Setter's note was reviewed and I agree with the note.
Comment: I had the pleasure to meet Kerline along with her daughter in [phone]. Kerline is a 84-year-old female who follows with Dr. Ashlie Torrez. She has a history of COPD and prior tobacco dependence, chronic heart failure preserved ejection fraction,
coronary artery disease status post CABG in 2005, type 2 diabetes mellitus, hypertension, hyperlipidemia, and history of breast cancer status post radiation and chemotherapy. She was previously prescribed supplemental oxygen and a long time ago
which she uses only as needed. She does not have a history of sleep apnea and does not use standing O2/nocturnal O2. She denies a history of sleep apnea and is not on CPAP. She was recently admitted to [facility] from November 30 - November
3 for acute on chronic heart failure preserved ejection fraction. This hospitalization was reviewed�she had an echocardiogram which showed normal left ventricular systolic function with a EF 60 to 65% with grade 2 diastolic dysfunction and elevated
left atrial pressure with mild LVH. She had moderate mitral regurgitation, aortic sclerosis/borderline stenosis with a mean gradient of 10 mmHg and no AI preserved, mild to moderate TR with moderate pulmonary hypertension and a pulmonary artery
systolic pressure estimated 52 mmHg with otherwise normal RV size systolic function. At time of discharge she was recommended Lasix 40 mg daily. Several weeks ago her bingo worker changed her dosing to 40 mg every other day due to increasing renal
function. She denies dietary salt indiscretion. She states her weights have been stable within 1 to 2 pounds although she has noted some slight ankle edema. Over the last 2 to 3 days she developed worsening shortness of breath with orthopnea.
She denies fevers or cough. In the emergency room she was noted to have pulmonary edema on chest x-ray and elevated proBNP at 1250. She reports constant tightness in her chest over the last week; troponin has been undetectable. Currently she is
feeling better following IV Lasix, bronchodilator and steroids With improved shortness of breath and wheezing and denies any further chest pain/tightness.
General: 84-year-old female on nasal cannula O2. AOA x 3. No conversational dyspnea at rest
Heart: Regular, positive S1/S2, 2/6 SM
Lungs:Bronchovesicular breath sounds decreased at the bases. No wheezes.
Abd: Positive BS, NT/ND, neg rebound/rigidity/guarding
Ext: No edema. Warm distal extremities.
Neuro: nonfocal
Plan:
84-year-old female with chronic heart failure with preserved ejection fraction/diastolic dysfunction/pulmonary hypertension with acute decompensation following reduction of diuretics and history of COPD with history of intermittent hypoxia requiring
home supplemental O2.
-proBNP 1250 which is actually lower than it was last admission with weights perhaps slightly increased with her initial weight in the emergency room 151 pounds and after IV diuresis now 145 pounds which is similar to her weight at time of discharge
-Renal function creatinine was 1 on November 30 and on day of discharge 1.2. Creatinine today is 1.4, potassium is 5
-Continue Lasix 40 mg IV daily and likely transition back to oral Lasix 40 mg daily in 24-48 hours
-Continue medical therapy for chronic heart failure with preserved ejection fraction/diastolic dysfunction including carvedilol 25 mg twice daily, Farxiga 5 mg daily.
-Patient is hypertensive, goal normotension. In addition to above medications patient is on nifedipine. The blood pressures continue to be elevated despite diuresis we will consider adding hydralazine
-No need to repeat echocardiogram
-Pending response to diuresis could consider right heart catheterization.
-Renal insufficiency, acute since last admission with underlying type 2 diabetes mellitus
- Monitor renal function closely. Will hold off adding DOYLE/ARB or Aldactone at this time.
- Consider nephrology consult either as an inpatient or as an outpatient.
COPD with history of prior tobacco dependence and reported history of intermittent hypoxia who has home O2 which she uses as needed
-Appreciate pulmonary input
History of coronary artery disease status post remote CABG
-Atypical chest pain on admission with undetectable troponin despite reported 1 week of pain.
-Patient with known CAD and previous CABG in 2005 with patent arterial grafts to the LAD, distal RCA and OM 2 but known occlusions of vein grafts to the RCA and OM1 by last cardiac cath in 2018.
-Continue aspirin. Continue Beta-ann and atorvastatin. Continue ranolazine
History of type 2 diabetes mellitus, controlled with last hemoglobin A1c 5.4%
- Monitor for hypoglycemia on Ozempic and Farxiga as well as Lantus
Original Note:
Consultation
Consultation Request
Date/Time Consultation Requested: 12/26/2024
Date/Time Consultation Performed: 12/26/2024
Requesting Provider: Dr. Adler
Performing Provider: Dr. Gomes
Reason for Consultation: Acute HF
Medical History
-
History of Present Illness:
Patient came to the ER with increased SOB and is being admitted with multifactorial acute on chronic hypoxic respiratory failure and cardiology is consulted for possible acute HFpEF. Patient was just admitted from 11/30/2024 until 12/02/2024 with
acute on chronic HFpEF. Echo was repeated that admission that showed preserved EF with moderate MR and borderline with a mean gradient of 10 mmHg. Patient was recommended Lasix 40 mg PO daily upon discharge, but she had DARLENE on outpatient labs
and the dose was reduced to 40 mg every other day by her outpatient bingo worker. Patient follows with Dr. Ashlie Torrez at [facility] and lives in [place], but her daughter lives locally and brings her to this hospital when she believes she needs to
be admitted. Patient also reported an atypical chest pain at her left shoulder, but initial troponin is undetectable despite a week of pain.
PMH:
Recent admission for acute HF 11/30/2024 until 12/02/2024
Chronic hypoxic respiratory failure
COPD
Chronic HFpEF
CAD
s/p CABG surgery at outside hospital x 2005
Patent arterial grafts to LAD, distal RCA, OM 2 and occlusions of SVG to RCA and SVG to OM1 by cath 03/2018
Former smoking
Type 2 diabetes
HTN
HLD
History of CVA
History of syncope versus seizure
History of breast cancer status post surgery and radiation, then followed by chemotherapy 5 to 6 years later
PVD s/p vein stripping
Anemia
Past Medical History
Past Medical History: Other (in HPI)
Past Surgical History: Cardiac (CABG 2005) and Gynecological (mastectomy)
Social History
Tobacco: Former Smoker (remote)
Alcohol: None
Living: Alone
Family History
Family History: Reviewed & Not Pertinent
Allergies / Home Medications
Allergy/AdvReac Type Severity Reaction Status Date / Time
No Known Allergies Allergy Verified 12/26/24 10:26
�Medication �Instructions �Recorded �Confirmed �Type
aspirin 81 mg tablet,delayed 81 mg PO DAILY Blood Clot 11/30/24 12/26/24 History
release Prevention/Tx
atorvastatin 80 mg tablet (Lipitor) 80 mg PO HS High Cholesterol 11/30/24 12/26/24 History
carvedilol 25 mg tablet (Coreg) 25 mg PO BID Blood Pressure 11/30/24 12/26/24 History
cholecalciferol (vitamin D3) 50 50 mcg PO DAILY Supplement 11/30/24 12/26/24 History
mcg (2,000 unit) capsule (Vitamin
D3)
cyclosporine 0.05 % eye drops in a 1 drp BOTH EYES Q12H Eye Condition 11/30/24 12/26/24 History
dropperette (Restasis)
ezetimibe 10 mg tablet (Zetia) 10 mg PO DAILY Allergies 11/30/24 12/26/24 History
febuxostat 40 mg tablet 40 mg PO DAILY Antigout Agent 11/30/24 12/26/24 History
fluticasone fur. 100 mcg-umeclid 1 inh inhalation R DAILYPRN PRN sob 11/30/24 12/26/24 History
62.5 mcg-vilant 25 mcg
inhalat.powder (Trelegy Ellipta)
insulin glargine 100 unit/mL 6 unit SC DAILY Diabetes 11/30/24 12/26/24 History
subcutaneous solution (Lantus
U-100 Insulin)
insulin lispro 100 unit/mL 2 - 4 sliding scale dose SC AC 11/30/24 12/26/24 History
subcutaneous pen Diabetes
melatonin 10 mg tablet 20 mg PO HS Sleep 11/30/24 12/26/24 History
nifedipine 30 mg tablet,extended 30 mg PO QPM Blood Pressure 11/30/24 12/26/24 History
release 24 hr
nifedipine 60 mg tablet,extended 60 mg PO DAILY Blood Pressure 11/30/24 12/26/24 History
release 24 hr
ranolazine 500 mg tablet,extended 500 mg PO BID Antianginal Agent; 11/30/24 12/26/24 History
release,12 hr
furosemide 40 mg tablet 40 mg PO DAILY #30 tabs 12/02/24 12/26/24 Rx
dapagliflozin propanediol 5 mg 5 mg PO DAILY Diabetes 12/26/24 12/26/24 History
tablet (Farxiga)
linaclotide 145 mcg capsule 145 mcg PO DAILYPRN PRN 12/26/24 12/26/24 History
(Linzess) constipation
semaglutide 2 mg/dose (8 mg/3 mL) 2 mg SC TH Diabetes 12/26/24 12/26/24 History
subcutaneous pen injector (Ozempic)
Review of Systems
-
History Source: Patient
All other systems: Negative unless noted
Physical Exam
Vital Signs
Temp Pulse Resp BP Pulse Ox
98.2 F 76 16 135/53 96
12/26/24 10:26 12/26/24 14:30 12/26/24 14:30 12/26/24 13:00 12/26/24 13:45
GEN: NAD, AO x 3
HEENT: EOMI, MMM
LUNGS: 2 L NC. Bibasilar rales and slight expiratory wheeze
CV: SR on telemetry. Reg, S1/S2, no murmur
ABD: ND
EXT: No edema B/L LE
NEURO: No focal or lateralizing weakness
SKIN: No rash
Lab Results
12/26/24 11:14
12/26/24 11:14
Troponin I < 0.012 ng/ml 12/26/24 11:14
Osl-H-Yxbglzjgixa Pept 1250 pg/ml 12/26/24 11:14
Impression / Plan
-
PCP: Dr. Aguiar
Primary Supervisor Sewing Department: Dr. Ashlie Torrez of [facility]
Impression:
Admitted with acute on chronic hypoxic respiratory failure, acute HFpEF and AECOPD 12/26/2024
Recent admission for acute HF 11/30/2024 until 12/02/2024
Acute on chronic hypoxic respiratory failure
AE COPD
Acute on chronic HFpEF
CAD
s/p CABG surgery at outside hospital x 2005
Patent arterial grafts to LAD, distal RCA, OM 2 and occlusions of SVG to RCA and SVG to OM1 by cath 03/2018
Former smoking
Type 2 diabetes
HTN
HLD
History of CVA
History of syncope versus seizure
History of breast cancer status post surgery and radiation, then followed by chemotherapy 5 to 6 years later
PVD s/p vein stripping
Anemia
Nuclear stress test 08/18/2019: Normal with no change compared to prior study from 2016 with myocardial perfusion normal and EF 68%
Echo 08/18/2019: EF 65%, mildly dilated LA, mild MR, trace TR, PAP normal, grade 1 diastolic dysfunction
Echo 12/01/2024: EF 60 to 65%, stage II diastolic dysfunction, moderate MR, aortic sclerosis with borderline stenosis and mean gradient of 10 mmHg, normal RV size and function with moderate TR and PAP 52 mmHg
Plan:
-Patient came to the ER with increased SOB and is being admitted with multifactorial acute on chronic hypoxic respiratory failure and cardiology is consulted for possible acute HFpEF. Patient was just admitted from 11/30/2024 until 12/02/2024 with
acute on chronic HFpEF. Echo was repeated that admission that showed preserved EF with moderate MR and borderline with a mean gradient of 10 mmHg. Patient was recommended Lasix 40 mg PO daily upon discharge, but she had ADRLENE on outpatient labs
and the dose was reduced to 40 mg every other day by her outpatient bingo worker. Patient follows with Dr. Ashlie Torrez at [facility] and lives in [place], but her daughter lives locally and brings her to this hospital when she believes she needs to
be admitted. Patient also reported an atypical chest pain at her left shoulder, but initial troponin is undetectable despite a week of pain.
-ECG reviewed by me is SR without acute ST changes
-proBNP is 1250 which is actually lower than it was for her acute HF admission earlier this month, but patient reports worsening SOB. Agree with attempt at IV diuresis with Lasix 40 mg IV daily.
-Labs reviewed by me and Cre is 1.4 on 12/26/2024, but was down to 1.2 on 12/02/2024. Patient and family report DARLENE as an outpatient as well that led to Lasix dosing decrease to 40 mg every other day and seem to coincide with increased SOB.
-Patient being treated for possible AECOPD as well, but she had wheezing with her heart failure admission earlier this month and her smoking history is remote and was only for a couple of years. No previous pulmonology consultation. CXR looks like
mostly acute HF.
-Patient with atypical left shoulder pain and troponin undetectable despite almost a week of pain. Patient with known CAD and previous CABG in 2006 with patent arterial grafts to the LAD, distal RCA and OM 2 but known occlusions of vein grafts to
the RCA and OM1 by last cardiac cath in 2019.
-No need to repeat echo unless there is minimal improvement in diuresis or the troponin trends up.
-Pending renal response to diuresis could consider nephrology or RHC, patient and family may also need to reconsider full code status in this 84-year-old patient with recurrent acute HF admission.
[2024-12-26 16:32] VITALS: BP 165/71; BMI 26.7
[2024-12-26 16:53] LABS: Glucose - Point of Care 223 mg/dl (70-99)
[2024-12-26] MEDS: PROCARDIA XL (EXTENDED RELEASE) 30 MG PO (18:43)
[2024-12-26] MEDS: HEPARIN 5000 UNITS SC ×2 (18:43→23:24)
[2024-12-26] MEDS: NOVOLOG FLEXPEN-LOW RESISTANCE 2 UNITS SC (19:32)
[2024-12-26] MEDS: COREG 25 MG PO (20:07)
[2024-12-26] MEDS: RANEXA EXTENDED RELEASE 500 MG PO (20:07)
[2024-12-26] MEDS: RESTASIS 0.05% OPHTHALMIC EMULSION 1 DROPS BOTH EYES (20:08)
[2024-12-26] MEDS: LIPITOR 80 MG PO (21:19)
[2024-12-26] MEDS: MELATONIN 20 MG PO (21:19)
[2024-12-26 22:02] LABS: Glucose - Point of Care 355 mg/dl (70-99)
[2024-12-26 23:51] VITALS: BP 128/55
[2024-12-27 03:45] VITALS: BP 132/52
[2024-12-27 06:00] VITALS: BMI 26.6
[2024-12-27 06:30] LABS: Hematocrit 29.3 % (37.0-47.0); Hemoglobin 9.4 g/dL (12.0-16.0); Mean Corp Hgb Conc. 32.1 g/dL (33.0-37.0); Mean Corpuscular Volume 91.0 fL (81.0-99.0); Nucleated Red Blood Cells % 0 %; Platelet Count 173 10^3/uL (130-400); Red Cell Dist. Width 13.4 % (11.5-14.5)
[2024-12-27 06:55] LABS: Troponin I < 0.012 ng/ml
[2024-12-27 07:06] VITALS: BP 132/56
[2024-12-27 07:25] LABS: ALT (SGPT) 16 U/L (0-35); AST (SGOT) 17 U/L (14-36); Albumin 3.3 g/dl (3.5-5.0); Alkaline Phosphatase 74 U/L (38-126); Blood Urea Nitrogen 32 mg/dl (7-17); Calcium 8.9 mg/dl (8.4-10.2); Carbon Dioxide 26 mmol/L (22-30); Chloride 106 mmol/L (98-107); Estimated Creatinine Clearance 30 ml/min; Glucose 261 mg/dl (70-99); Magnesium 2.2 mg/dl (1.6-2.3); Potassium 4.6 mmol/L (3.5-5.1); Sodium 140 mmol/L (135-145); Total Protein 5.9 g/dl (6.3-8.2); eGFR 44.08
[2024-12-27] MEDS: DUONEB 3 ML INH ×2 (07:30→11:09)
[2024-12-27 08:06] LABS: Glucose - Point of Care 177 mg/dl (70-99)
[2024-12-27] MEDS: COREG 25 MG PO (08:58)
[2024-12-27] MEDS: ASPIR LOW (ENTERIC COATED) 81 MG PO (08:58)
[2024-12-27] MEDS: RESTASIS 0.05% OPHTHALMIC EMULSION 1 DROPS BOTH EYES (09:00)
[2024-12-27] MEDS: ZETIA 10 MG PO (09:00)
[2024-12-27] MEDS: HEPARIN 5000 UNITS SC (09:00)
[2024-12-27] MEDS: RANEXA EXTENDED RELEASE 500 MG PO (09:00)
[2024-12-27] MEDS: LASIX 40 MG IV (09:01)
[2024-12-27] MEDS: NOVOLOG FLEXPEN-LOW RESISTANCE 1 UNITS SC (09:03)
[2024-12-27] MEDS: LANTUS 0.06 UNITS SC (09:16)
--- NOTE | 2024-12-27 11:05 | W.PN.HOSP.TC ---
Addendum entered and electronically signed by Abdelrahman Adler MD 12/27/24 11:57:
Please dont use billing under this note, use discharge summary billing instead
Original Note:
Today's Communication/Plan
-
cont mgmt as per cardio
PT
Assessment / Plan
Assessment / Plan
84yo Ghanaian speaking F with PMHx of CVA, CAD s/p CABG, PVD, Hx of breast CA s/p RT and chemo, goutHFpEF on 4L home O2 PRN for 2 years, moderate MR, moderate TR and moderate pulmonary HTN, HLD, glaucoma, HTN, constipation, DM, COPD brought from home
with worsening dyspnea for past 3 days. Managed for CHF exacerbation
A/P:
#Acute on chronic hypoxic respiratory failure 2/2 acute on chronic HFpEF exacerbation and COPD exacerbation
#Moderate Pulmonary HTN
#CAD s/p PCI @2019 and CABG @2005
Mixed picture, no convincing clinical CHF bedside
Pulm eval: steroids to stop and monitor, outpatient PFT
Cardio consult: Lasix
Echo done 3 weeks ago - will defer
Telemetry
Lasix, daily weight, follow electrolytes and Cr
bronchodilators
follow troponin trend, but chest pain-free at the time of admission
EKG without new overt TWI or ST changes
#Leukocytosis
resolved
no pneumonia on XR
COVID-19 and Influenza PCR neg
Afebrile
follow clinically off Abx
#DM type 2 with nephropathy
Accuchecks, Insulin SS and Lantus 6 units daily, DM diet
Hold farxiga and Ozempic
HgbA1c 5.4% on 12/01/24
#CKD stage 3
#Essential HTN
#HLD
#Gout
cont home meds - BP well controlled on single PM nifedipine
DVT ppx on Hep
Full code
I have spent at least 58min reviewing chart, test results, communication with consultants, family bedside and providing direct patient care
Anticipated Discharge: 24 - 48 hours
Subjective/Interval History
-
Date of Service: December 27, 2024
Objective Data
-
Labs:
Laboratory Results
12/27/24
06:11
WBC 8.4
Hgb 9.4 L
Hct 29.3 L
Plt Count 173
Sodium 140
Potassium 4.6
Chloride 106
Carbon Dioxide 26
BUN 32 H
Creatinine 1.2 H
Glucose 261 H
Calcium 8.9
Total Bilirubin 0.4
AST 17
ALT 16
Alkaline Phosphatase 74
Vital Signs:
Vital Signs
Temp Pulse Resp BP Pulse Ox
98.3 F 79 16 132/56 95
12/27/24 07:06 12/27/24 08:58 12/27/24 07:32 12/27/24 08:58 12/27/24 08:05
I&O
12/26/24 12/27/24 12/28/24
06:59 06:59 06:59
Intake Total 480 / 480
Balance 480 / 480
Review of Systems
-
History Source: Patient
All other systems: Reviewed and negative
Physical Exam
-
General: No Apparent Distress
HEENT: Normocephalic
Respiratory: Crackles
Cardiac: Regular Rhythm
Musculoskeletal: No Clubbing, No Cyanosis and No Edema
Neuro: Awake, Alert, Oriented and AO x 3
Psych: Calm
[2024-12-27 11:50] VITALS: O2SAT 94; O2SAT 96
[2024-12-27 11:53] LABS: Glucose - Point of Care 201 mg/dl (70-99)
--- NOTE | 2024-12-27 11:57 | W.DCSUMMARY ---
Discharge Summary
Discharge Data
Date of Admission: 12/26/24
Date of Discharge: 12/27/24
-
Pending Results: No
Hospital Course
84yo Bulgarian speaking F with PMHx of CVA, CAD s/p CABG, PVD, Hx of breast CA s/p RT and chemo, goutHFpEF on 4L home O2 PRN for 2 years, moderate MR, moderate TR and moderate pulmonary HTN, HLD, glaucoma, HTN, constipation, DM, COPD brought from home
with worsening dyspnea for past 3 days. Managed for CHF exacerbation, rapidly improved. Also patient was not compliant with Trelegy, which also possibly played a role. Lasix advised to be reatsrted daily, repeat BMP in 1 week. Since BP mostly in
appropriate range and to avoid hypotension even without AM dose of Nifedipine - it was stopped upon d/c. As per agreement with card and pulm - medically stable for d/c home
I have spent at least 58min reviewing chart, test results, communication with consultants, family bedside and providing direct patient care
Patient was managed for:
#Acute on chronic hypoxic respiratory failure 2/2 acute on chronic HFpEF exacerbation and COPD exacerbation
#Moderate Pulmonary HTN
#CAD s/p PCI @2019 and CABG @2005
#Leukocytosis
#DM type 2 with nephropathy
#CKD stage 3
#Essential HTN
#HLD
#Gout
Discharge Plan
-
Patient Disposition: Home (Routine Discharge)
Discharge Diagnosis/Procedures: CHF exacerbation
Diet: No added salt
Activity: As tolerated
Blood Work: BMP in 1 week
Instructions: *PCP/Other International Marketing Coordinator Heart Failure Instructions
Referrals:
Tim Velazco MD [Active, Pulmonary Medicine]
Deniz Aguiar MD [Family Provider, Internal Medicine] - in less than 1 week
Gabbi Gomes, [Active, Cardiology]
Additional Discharge Medication Instructions: Take Furosemide 40mg daily, Nifedipine only at PM and follow blood pressure with family doctor
Prescriptions:
Continued
nifedipine 30 mg Tablet Extended Release 24hr
30 mg PO QPM
atorvastatin [Lipitor] 80 mg Tablet
80 mg PO HS
carvedilol [Coreg] 25 mg Tablet
25 mg PO BID
insulin glargine [Lantus U-100 Insulin] 100 unit/mL Solution
6 unit SC DAILY
aspirin 81 mg Tablet,Delayed Release (Dr/Ec)
81 mg PO DAILY
insulin lispro 100 unit/mL Insulin Pen
2 - 4 sliding scale dose SC AC
ezetimibe [Zetia] 10 mg Tablet
10 mg PO DAILY
cyclosporine [Restasis] 0.05 % Dropperette
1 drp BOTH EYES Q12H
ranolazine 500 mg Tablet Extended Release 12 Hr
500 mg PO BID
cholecalciferol (vitamin D3) [Vitamin D3] 50 mcg (2,000 unit) Capsule
50 mcg PO DAILY
febuxostat 40 mg Tablet
40 mg PO DAILY
melatonin 10 mg Tablet
20 mg PO HS
Trelegy Ellipta 100-62.5-25 mcg Blister With Device
1 inh INHALATION R DAILYPRN PRN (Reason: sob)
Linzess 145 mcg Capsule
145 mcg PO DAILYPRN PRN (Reason: constipation)
Ozempic 2 mg/dose (8 mg/3 mL) Pen Injector
2 mg SC TH
dapagliflozin propanediol [Farxiga] 5 mg Tablet
5 mg PO DAILY
furosemide 40 mg tablet
40 mg PO DAILY Qty: 30 0RF
Discontinued
nifedipine 60 mg Tablet Extended Release 24hr
60 mg PO DAILY
Discharge Orders:
Discharge Patient (As Directed); Ordered 12/27/24
Ordered By: Abdelrahman Adler
Discharge Date and Time
Print Language: ESTONIAN
--- NOTE | 2024-12-27 12:06 | W.PN.PUL3 ---
Today's Communication / Plan
-
- Resume Trelegy at discharge
- Will pursue pulmonary function testing and 6-minute walk test as outpatient and consider stepping down inhaler therapy
- Outpatient follow-up with [facility] pulmonary clinic
Assessment
-
Patient is a very pleasant 84-year-old female from [facility], accompanied by her daughter, who presented to the hospital with worsening shortness of breath. Patient reports a prior diagnosis of COPD for which oxygen was prescribed long time ago
which she only uses as needed. 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 She felt she did not notice any change in her symptoms with the inhalers and stopped using it years
ago. She smoked only for 2 to 4 years and quit more than 20 years ago. No history of asthma in childhood. She was recently discharged after an hospitalization for heart failure exacerbation. Patient over the last 2 to 3 days developed worsening
shortness of breath, orthopnea. No reported cough or expectoration. In the emergency room patient was noted to have chest x-ray with pulmonary edema, elevated proBNP. She reportedly also had wheezing and was given a bronchodilator along with
steroids and initiated on IV diuresis. Pulmonary consultation was requested for further input.
#1. Dyspnea
- Suspect primarily related to volume overload. Also has underlying history of pulmonary hypertension and ?COPD
- Influenza A, B, COVID-19 screen negative. No consolidation suggestive of pneumonia, monitor off antibiotics
- Responded well to diuresis. Significant improvement overnight.
#2. Acute on chronic heart failure with preserved ejection fraction, stage II diastolic dysfunction
- BNP elevated at 1250
- Transitioning to PO lasix now.
- Appears euvolemic today
#3. Pulmonary hypertension
- Echo suggestive of pulmonary artery systolic pressure of 52 with moderate tricuspid regurgitation. RV size and function preserved.
- Suspect group II PH with underlying congestive heart failure
- Continue to optimize volume with diuresis, keep oxygen saturation above 90%. Doing well on room air now.
- In view of volume overload, no indication for vasodilator therapy
#4. ?H/o COPD
- No prior h/o asthma. Reported smoking for 2-3 years only, quit > 20 years ago
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
- Admission wheezing could be related to 'cardiac asthma' with fluid overload.
- Will need outpatient follow-up with [facility] pulmonary clinic for further evaluation including full pulmonary function testing and 6-minute walk test.
- Resume Trelegy at discharge and can pursue additional work up as out patient.
#5. Trace pleural effusions
- Appears small, in view of bilateral nature, suspect underlying volume overload contributing.
- Continue to diurese and monitor
Other medical diagnoses:
- CKD stage III
- History of coronary artery disease, s/p CABG in 2005. Patent graft per left heart cath in 2019
- Hypertension, hyperlipidemia
- Diabetes
- History of breast cancer s/p surgery and radiation followed by chemotherapy
- History of CVA
- Remote history of smoking.
Total time spent on this consultation/encounter _35__ minutes which includes review of history, physical exam, medications, laboratory data, personal review of imaging, extensive review of outpatient records, discussion with care team and
respiratory therapy.
Data:
CXR 11/2024: Cardiomegaly. Diffusely increased interstitial markings most suggestive of interstitial pulmonary edema pattern. See above discussion.
Small bilateral pleural effusions, including extension of fluid into the pleural fissures on the right.
ECHO 11/2024: 1. Mild left ventricular hypertrophy with preserved systolic function, EF 60-65%. Stage II diastolic dysfunction with elevated left atrial pressure.
2. Mitral leaflet thickening, mitral annular calcification, moderate mitral regurgitation and dilated left atrium.
3. Aortic sclerosis/borderline stenosis, mean gradient 10 mmHg, no aortic regurgitation.
4. Normal right heart with mild to moderate tricuspid regurgitation and moderate pulmonary hypertension, pulmonary artery systolic pressure of 52 mmHg.
5. There are no prior studies available for comparison.
Subjective Data
-
Date of Service:
Date of Service: December 27, 2024
Subjective:
Patient comfortably sitting in bed, on room air. Reports feeling much better.
Review of Systems
Genitourinary: Other (All 14 systems reviewed and negative except as stated above in the history of present illness.)
Objective Data
Data Reviewed
Vital Signs / I&O / Oxygen:
Vital Signs
Temp Pulse Resp BP Pulse Ox
98.3 F 62 16 132/56 96
12/27/24 07:06 12/27/24 11:12 12/27/24 11:12 12/27/24 08:58 12/27/24 11:18
Intake and Output
12/26/24 12/27/24 12/28/24
06:59 06:59 06:59
Intake Total 480 / 480
Balance 480 / 480
SaO2 96
Nasal Cannula flow liters per 1
minute
Physical Exam
General: Comfortable
HEENT: Normocephalic
Cardiovascular: S1-S2
Respiratory: Non-Labored Respirations
GI: Soft and Non Distended
Neurology: Awake and Alert
Skin: Warm
Labs/Micro/Reports
Lab Data
12/27/24 06:11
12/27/24 06:11
Microbiology
12/26/24 11:14 Nasal Swab Influenza Types A & B (MIGUELITO) - Final
Negative for Influenza A & B, NAAT
Negative results must be combined with clinical observations
and patient history.
Nucleic Acid Amplification test (NAAT)performed on the
[employer] platform.
--- NOTE | 2024-12-27 12:22 | W.PN.CARDCBS ---
Today's Communication / Plan
-
Okay for discharge, see below
Impression / Plan
-
PCP: Dr. Aguiar
Primary Airset Molder: Dr. Ashlie oTrrez of [facility]
Impression:
Admitted with acute on chronic hypoxic respiratory failure, acute HFpEF and AECOPD 12/26/2024
Recent admission for acute HF 11/30/2024 until 12/02/2024
Acute on chronic hypoxic respiratory failure
AE COPD
Acute on chronic HFpEF
CAD
s/p CABG surgery at outside hospital x 2005
Patent arterial grafts to LAD, distal RCA, OM 2 and occlusions of SVG to RCA and SVG to OM1 by cath 03/2018
Former smoking
Type 2 diabetes
HTN
HLD
History of CVA
History of syncope versus seizure
History of breast cancer status post surgery and radiation, then followed by chemotherapy 5 to 6 years later
PVD s/p vein stripping
Anemia
Nuclear stress test 08/18/2019: Normal with no change compared to prior study from 2016 with myocardial perfusion normal and EF 68%
Echo 08/18/2019: EF 65%, mildly dilated LA, mild MR, trace TR, PAP normal, grade 1 diastolic dysfunction
Echo 12/01/2024: EF 60 to 65%, stage II diastolic dysfunction, moderate MR, aortic sclerosis with borderline stenosis and mean gradient of 10 mmHg, normal RV size and function with moderate TR and PAP 52 mmHg
Plan:
Overall improved. Hospitalization may have been precipitated by the fact that furosemide was decreased to every other day because of creatinine. Daughter states also that patient was tried on spironolactone but had an increase in renal function.
They have a prescription for topical of his own 5 mg a day but have not yet started.
Discussed with daughter and patient. Daughter asked a number of insightful questions.
Recommended cardiac medications at discharge evaluated: Aspirin 81 mg a day
Atorvastatin 80 mg a day
Carvedilol 25 mg twice daily
Dapagliflozin 5 mg daily
Ezetimibe 10 mg daily
Furosemide 40 mg daily (had been 40 mg every other day)
Nifedipine ER 60 mg a.m. and 30 mg p.m.
Ranolazine 500 mg twice daily
Aspirin 81 mg a day
Cardiology follow-up with Dr. Torrez.
Progress Note - Airset Molder
Subjective
Date of Service: December 27, 2024:
84-year-old woman admitted with acute on chronic HFpEF, proBNP 1250. She feels better now, offers no complaints, feels that she can go home
PMH:/PSH: COPD, CAD/remote CABG, type 2 diabetes (on Ozempic/Farxiga), hypertension, hyperlipidemia, history of breast cancer with radiation/chemo, history of CVA, remote smoker
Current meds: Aspirin 81 mg a day, atorvastatin 80 mg a day, carvedilol 25 mg twice daily, ezetimibe 10 mg a day, Uloric, Procardia XL 30 mg a day, ranolazine 500 twice daily, insulin glargine, furosemide 40 mg IV daily, Ozempic, dapagliflozin on
hold, ezetimibe on hold
132/56 pulse 79, respiratory rate 16, weight is 65.9 kg, had been 66.2 kg, 68.6 kg on admission, head neck exam unremarkable, lungs are clear, regular rate and rhythm with ectopics,, abdomen benign JVD okay, no edema
ECG: Sinus rhythm nonspecific ST and T changes
Hemoglobin 9.4, had been 10.7, proBNP 1250, BUN is 32, creatinine is 1.2, potassium is 4.6
Echo 12/01/2024: Mild LVH, EF 60-65%, stage II diastolic dysfunction, mitral annular calcification, moderate mitral regurgitation, aortic sclerosis, mild to moderate TR, pulm artery systolic pressure is 52
Chest x-ray: Basilar infiltrates
Objective
Labs:
12/27/24 06:11
12/27/24 06:11
Labs
Hgb 9.4 g/dL (12.0-16.0) L 12/27/24 06:11
Hct 29.3 % (37.0-47.0) L 12/27/24 06:11
Plt Count 173 10^3/uL (130-400) 12/27/24 06:11
Sodium 140 mmol/L (135-145) 12/27/24 06:11
Potassium 4.6 mmol/L (3.5-5.1) 12/27/24 06:11
BUN 32 mg/dl (7-17) H 12/27/24 06:11
Creatinine 1.2 mg/dL (0.6-1.0) H 12/27/24 06:11
Glucose 261 mg/dl (70-99) H 12/27/24 06:11
Troponins
12/26/24 12/26/24 12/27/24
00:30 11:14 06:11
Troponin I Cancelled < 0.012 < 0.012
12/27/24
08:32
Troponin I Cancelled
Vital Signs and I&O:
Vital Signs
Temp Pulse Resp BP Pulse Ox
36.8 C 62 16 132/56 96
12/27/24 07:06 12/27/24 11:12 12/27/24 11:12 12/27/24 08:58 12/27/24 11:18
Vital Signs
Temp Pulse Resp BP Pulse Ox
36.8 C 62 16 132/56 96
12/27/24 07:06 12/27/24 11:12 12/27/24 11:12 12/27/24 08:58 12/27/24 11:18
Intake & Output
12/25/24 12/26/24 12/27/24 12/28/24
07:59 07:59 07:59 07:59
Intake Total 480 / 480
Balance 480 / 480
Physical Exam
Physical Exam
See above
--- NOTE | 2024-12-27 12:51 | CM ---
Patient seen at bedside with dtr Fani
discharge today
IMM explained & signed. In chart
per dtr [facility]
Spoke with [facility] at [facility]
she will add in nursing
CM consult complete VN
PLAN: Home with [facility]
Fax #: [phone]
[2024-12-27] MEDS: NOVOLOG FLEXPEN-LOW RESISTANCE 2 UNITS SC (13:08)
[2024-12-27 13:15] VITALS: BP 128/60
--- NOTE | 2024-12-28 09:25 | W.HF.CON ---
Heart Failure
- LV Function
Left ventricular function study result: LV Ejection fraction >/= 50% (ECHO 12/01/24)
Ejection Fraction Percentage: 60-65
- ARNI
Patient already on ARNI: No
Heart Failure ARNI Not Indicated: LV Ejection Fraction >/= 40%
- ACEI/ARB
Patient already on ACEI/ARB: No
Heart Failure ACEI/ARB Not Indicated: LV Ejection Fraction > 40%
- Beta Pratik
Patient already on Evidence Based Beta Pratik: Yes
- Mineralocorticord Receptor Antagonist
Patient already on MRA: No
Heart Failure MRA Not Indicated: LV Ejection Fraction > 40%
- SGLT-2 Inhibitor
Patient already on SGLT-2 Inhibitor: Yes
- NYHA CHF Classification
NYHA CHF Classification Level: Class III - Symptoms w/ min exertion, interferes w/ nml daily activity
- ACC/AHA Stage
ACC/AHA Stage: Stage C: Symptomatic Heart Failure
== END 2024-12-27 14:09 | disposition home health service (06) | DRG 291 ==
LOC: 3 WEST ACU 14:28
PROVIDERS: ADMITTING PHYSICIAN Internal Medicine; CONSULT PHYSICIAN Internal Medicine; CONSULT PHYSICIAN Internal Medicine Cardiovascular Disease; EMERGENCY PHYSICIAN Emergency Medicine; FAMILY PHYSICIAN Internal Medicine
DX: I13.0 Hypertensive heart and chronic kidney disease with heart failure and stage 1 through stage 4 chronic kidney disease, or unspecified chronic kidney disease (principal); I50.33 Acute on chronic diastolic (congestive) heart failure; J96.21 Acute and chronic respiratory failure with hypoxia; J44.1 Chronic obstructive pulmonary disease with (acute) exacerbation; J84.9 Interstitial pulmonary disease, unspecified; Z11.52 Encounter for screening for COVID-19; Z87.891 Personal history of nicotine dependence; I27.20 Pulmonary hypertension, unspecified; I25.10 Atherosclerotic heart disease of native coronary artery without angina pectoris; E11.51 Type 2 diabetes mellitus with diabetic peripheral angiopathy without gangrene; E11.22 Type 2 diabetes mellitus with diabetic chronic kidney disease; N18.30 Chronic kidney disease, stage 3 unspecified; M10.9 Gout, unspecified; Z79.4 Long term (current) use of insulin; Z79.82 Long term (current) use of aspirin; Z79.899 Other long term (current) drug therapy
CPT/HCPCS: 71046; 80053; 82962; 83735; 83880; 84484; 85025; 87502; 87811; 93005; 94640; 94761; 96374; 96375; 99285